=== PATIENT | female | born 1950 | race Caucasian/White ===

== ENCOUNTER 2018-04-05 10:18 | Inpatient (IN) | payer MEDICARE, OTHER ==
[~2018-04-05] VITALS: Ht 160 cm; Wt 101.2 kg
--- NOTE | 2018-04-05 13:35 | NUR ---
PT ARRIVED TO [facility] VIA WC ACCOMPANIED BY SPOUSE AND HOSPITAL VOLUNTEER. PT SELF TRANSFERED INTO BED. PT IS ALERT AND ORIENTED AND ON ROOM AIR. MED RECA DN ADMISSION HISTORY COMPLETED. DULCE RN TO DO ADMISSION ASSESSMENT. WILL GET IV STARTED. PT HAS NO FURTHER NEEDS AT THIS TIME. BED LOW. CL IN REACH.
[2018-04-05] MEDS ORDERED: ZYLOPRIM300 MG PO (13:44)
[2018-04-05] MEDS ORDERED: BYSTOLIC5 MG PO (13:45)
[2018-04-05] MEDS ORDERED: CYMBALTA60 MG PO (13:45)
[2018-04-05] MEDS ORDERED: LYRICA75 MG PO (13:46)
[2018-04-05] MEDS ORDERED: GLUCOPHAGE1000 MG PO (13:47)
[2018-04-05] MEDS ORDERED: ZYPREXA20 MG PO (13:47)
[2018-04-05] MEDS ORDERED: OMEPRAZOLE20 M1 PO (13:48)
[2018-04-05] MEDS ORDERED: PREMARIN0.45 MG PO (13:49)
[2018-04-05] MEDS ORDERED: PRAVACHOL20 MG PO (13:49)
[2018-04-05] MEDS ORDERED: BYDUREON P2 MG/0.65 SC (13:50)
[2018-04-05 14:38] VITALS: BP 139/55; BMI 39.0
--- NOTE | 2018-04-05 14:41 | NUR ---
UNDRESSED LEFT FOOR DRESSING. CLEANSED OPEN ULCER ON FLAT SURFACE OF LEFT FOOT AND LET AIR DRY AND COLLECTED WOUND CULTURE TO DO PER MICROBIOLOGY. CLEANSED BLISTERS ON TOP OF GREAT TOE AND SIDE OF GREAT TOE WITH WOUND CLEANSER AND LET AIR DRY. PLACED 4X4'S ON BOTTOM OF FLAT SURFACE AND WRAPPED FOOT WITH KERLIX AND TAPED. WOUND CULTURE TAKEN TO LAB.
--- NOTE | 2018-04-05 14:52 | NUR ---
THIS NURSE AND ANOTHER NURSE TRIED TO START IV ON PT WITH NO SUCCESS. MAHAD VASCULAR ACCESS NURSE CALLED ANS SHE STATES TO HAVE ANDRE TRY FIRST AND IF ANDRE CAN'T GET IT TO CALL HER BACK. ANDRE RN TO TRY AND START IV.
--- NOTE | 2018-04-05 14:55 | NUR ---
PHARMACY DOES NOT CARRY PREMARIN 0.45MG OR BYDUREON 2MG PT HAS TO BRING MED FROM HOME AND TAKEN TO PHARMACY SO THEY CAN LABEL IT. WILL ASK PT TO BRING MEDS FROM HOME.
--- NOTE | 2018-04-05 15:02 | NUR ---
SPOKE WITH PT AND PT'S . PT STATES HE WILL GET THE MEDS AND BRING FROM HOME. ANDRE DAIGLE STARTED RIGHT AC 20G IV.
--- NOTE | 2018-04-05 15:39 | NUR ---
PT GOT UP TO USE THE BATHROOM AND BLISTER RIGHT UNDER GREAT TOE ON LEFT FOOT POPPED AND STARTED BLEEDING AND FOOT DRESSING CAME OFF. CLENASED FOOT WITH WOUND CLEANSER AND PLACED 4X4'S ON TOP OF FOOT AND ON FLAT SURFACE OF FOOT AND WRAPPED WITH KERLIX AND TAPPED. STATED TO PT WE NEED TO USE THE BEDPAN FROM NOW ON SO WE DON'T DO MORE DAMAGE TO HER FOOT. PT VERBALIZED UNDERSTANDING. UA COLLECTED AND TAKEN TO LAB.
[2018-04-05 16:26] LABS: BASOPHILS 0.1 % (0-2); EOSINOPHILS 0 % (0-7); HEMATOCRIT 30.6 % (36.0-48.0); HEMOGLOBIN 10.8 g/dL (12-16); IMMATURE GRANULOCYTES 0.4 % (0-5); LYMPHOCYTES 4.9 % (15-50); MCH 32.7 pg (26.0-34.0); MCHC 35.3 g/dL (31.0-37.0); MCV 92.7 fL (80.0-100.0); MEAN PLATELET VOLUME 10.3 fL (7.4-10.4); MONOCYTES 5.5 % (2-11); NEUTROPHILS 89.1 % (40-80); WBC 19.4 10x3/uL (4.8-10.8)
[2018-04-05 16:30] LABS: PLATELET COUNT 191 10x3/uL (130-400)
[2018-04-05 16:42] LABS: ALBUMIN 2.9 g/dL (3.4-5.0); ANION GAP 14.3 mmol/L (8-16); BILIRUBIN - TOTAL 0.42 mg/dL (0.2-1.3); CALCIUM 9.7 mg/dL (8.5-10.1); CARBON DIOXIDE 27.3 mmol/L (21.0-32.0); CREATININE - SERUM 1.5 mg/dL (0.6-1.3); POTASSIUM - SERUM 4.6 mmol/L (3.5-5.1); PROTEIN - SERUM 6.8 g/dL (6.4-8.2); URIC ACID 6.2 mg/dL (2.6-7.2)
[2018-04-05 16:48] LABS: APPEARANCE CLEAR (CLEAR); BILIRUBIN NEGATIVE (NEGATIVE); COLOR YELLOW (YELLOW); GLUCOSE NEGATIVE (NEGATIVE); KETONE NEGATIVE (NEGATIVE); NITRITE NEGATIVE (NEGATIVE); PROTEIN NEGATIVE (NEGATIVE); UROBILINOGEN NORMAL (NORMAL)
[2018-04-05 17:22] VITALS: BP 130/47
[2018-04-05 17:53] LABS: ERYTHROCYTE SEDIMENTATION RATE 110 mm/hr (0-30)
--- NOTE | 2018-04-05 18:33 | NUR ---
PT'S FOOT WORSE FROM EARLIER TODAY. LEFT FOOT NOW HAVING DARK DISCOLORATION BELOW POPPED BLISTER BELOW GREATER TOE. CLEANSED FOOT WITH WOUND SPRAY AND COVERED WIHT ABD PAD AND WRAPPED WIHT KERLIX AND TAPPED PER DR. DAMIAN Hewitt.
--- NOTE | 2018-04-05 19:00 | NUR ---
COLON AND RECTAL SURGEON CALLED AND STATES SHE WILL BE HERE IN ABOUT AN HOUR TO DO MRI.
--- NOTE | 2018-04-05 19:15 | NUR ---
CONSENTS SIGNED AND IN CHART.
--- NOTE | 2018-04-05 20:00 | NUR ---
PT GO TO MRI WITH HOSPITAL STAFF.
--- NOTE | 2018-04-05 21:09 | NUR ---
PT BACK FROM MRI.
[2018-04-06 00:02] VITALS: BP 100/42
--- NOTE | 2018-04-06 01:07 | NUR ---
REST QUIELTY IN BED, CALL LIGHT IN REACH.
--- NOTE | 2018-04-06 04:09 | NUR ---
REST QUIELTY IN BED, CALL LIGHT IN REACH.
[2018-04-06 04:42] VITALS: BP 86/41
[2018-04-06 06:20] LABS: BASOPHILS 0.1 % (0-2); EOSINOPHILS 0.2 % (0-7); HEMATOCRIT 29.2 % (36.0-48.0); HEMOGLOBIN 10.1 g/dL (12-16); IMMATURE GRANULOCYTES 0.4 % (0-5); LYMPHOCYTES 7.2 % (15-50); MCH 32.6 pg (26.0-34.0); MCHC 34.6 g/dL (31.0-37.0); MCV 94.2 fL (80.0-100.0); MEAN PLATELET VOLUME 10.4 fL (7.4-10.4); MONOCYTES 6.6 % (2-11); NEUTROPHILS 85.5 % (40-80); PLATELET COUNT 177 10x3/uL (130-400); RDW 13.1 % (11.5-14.5)
[2018-04-06 06:41] LABS: ANION GAP 15.1 mmol/L (8-16); POTASSIUM - SERUM 4.1 mmol/L (3.5-5.1)
[2018-04-06 06:50] LABS: WBC 14.4 10x3/uL (4.8-10.8)
--- NOTE | 2018-04-06 07:00 | NUR ---
RECEIVED REPORT. ASSUMED CARE OF PATIENT. CALL LIGHT WITHIN REACH. AWAKE, SITTING UP IN BED WITH FAMILY AT BEDSIDE. NO DISTRESS. NPO FOR SURGERY THIS AM.
--- NOTE | 2018-04-06 08:00 | NUR ---
EKG COMPLETED AND PLACED ON CHART.
[2018-04-06 08:15] VITALS: BP 109/44
--- NOTE | 2018-04-06 09:42 | NUR ---
CALL PLACED TO SURGERY, SURGERY STATE PATIENT IS CASE NUMBER [id number], WILL BE DONE CLOSER TO THE END OF THE DAY.
--- NOTE | 2018-04-06 11:38 | NUR ---
FSBS 131. NO INSULIN REQUIRED. PATIENT IS ALSO NPO FOR SURGICAL PROCEDURE.
[2018-04-06 11:46] VITALS: BP 125/63
--- NOTE | 2018-04-06 11:55 | NUR ---
CALLED TO CHECK ON PATIENT AND CONFIRM THAT PATIENT HAS DECIDED TO AMPUTATE HER LEG. DR. MANRIQUEZ STATED SHE WOULD PROBABLY COME OVER AND SEE THE PATIENT.
--- NOTE | 2018-04-06 12:29 | NUR ---
PREOP MEDS ADMINISTERED ORDERED AT THIS TIME.
--- NOTE | 2018-04-06 13:22 | NUR ---
PATIENT LEFT UNIT AT THIS TIME FOR SURGERY VIA BED. NO DISTRESS UPON LEAVING UNIT.
[2018-04-06 15:48] LABS: % SATURATION 9 % (15-55); IRON 18 ug/dl (35-150); TOTAL IRON BIND CAPACITY 196 ug/dl (260-445); UNSAT IRON BIND CAPACITY 178 ug/dl (150-375)
--- NOTE | 2018-04-06 16:25 | NUR ---
PATIENT REMAINS OFF UNIT AT THIS TIME.
--- NOTE | 2018-04-06 16:40 | NUR ---
RECEIVED REPORT FROM RECOVERY. PATIENT TO UNIT SOON.
[2018-04-06 16:53] VITALS: BP 109/53
--- NOTE | 2018-04-06 16:55 | NUR ---
RECEIVED PATIENT FROM RECOVERY. AWAKE, ALERT, ORIENTED. FRESH ICE WATER PROVIDED REQUESTED. VS STABLE AND DOCUMENTED IN VS POST OP STATBILITY. IV INFUSING ORDERED. CALL LIGHT WITHIN REACH. CAILIN DRAIN TO LEFT LEG WITH NO OUTPUT. KNEE IMMOBILIZER TO LEFT LEG. NO DISTRESS. PATIENT STATES SHE IS READY FOR DINNER!
--- NOTE | 2018-04-06 18:30 | NUR ---
RESTING IN BED. PM MEAL CONSUMED. NO DISTRESS. IV VANC INFUSING ORDERED. CALL LIGHT WITHIN REACH. NO DRAINAGE TO CAILIN DRAIN AT THIS TIME. CAILIN DRAIN SAFETY PINNED TO KNEE BRACE.
--- NOTE | 2018-04-06 19:25 | NUR ---
INITIAL ASSESSMENT COMPLETED - PT A/O X4, VSS. L LEG BANDAGE AND CAILIN DRAIN INTACT, DRAINING BLOODY FLUID. PAIN 04/18, EDUCATED PT THAT WHEN SHE STARTS FEELING BREAKTHROUGH PAIN TO NOTIFY RN IN ORDER TO KEEP PAIN UNDER CONTROL. PT VERBALIZED UNDERSTANDING. NO FURTHER NEEDS NOTED AT THIS TIME. WCTM AND FOLLOW POC. CL IN REACH, BED IN LOWEST POSITION, SR UPX2.
[2018-04-06 21:03] VITALS: BP 111/41
--- NOTE | 2018-04-06 21:31 | OP ---
PATIENT NAME: JAVIER ORNELAS MEDICAL RECORD: [id number] :52 LOCATION:D. D.2139 ADMISSION DATE:04/05/18 SURGEON: MERRICK SALGADO DO DATE OF OPERATION: 04/06/2018 PROCEDURE PERFORMED: Left below-knee amputation. PREOPERATIVE DIAGNOSIS: Diabetic left foot infection. POSTOPERATIVE DIAGNOSIS: Diabetic left foot infection. INDICATIONS: Ms. Ornelas is a 67-year-old female who presented to the hospital yesterday after having had a diabetic foot ulcer for sometime. The ulcer was on the plantar surface of the foot over the metatarsal heads. She had it and then suddenly her foot started becoming red on Thursday. On Thursday, more red and swollen and then, by Thursday morning, it spread to her mid foot and her foot was quite swollen with purulent fluid draining out of it. The redness reached her ankle and overnight, Thursday night, she did get an MRI, which demonstrated a large abscess in the foot and myositis in the entire foot. I had a desiree discussion with her that we can do an I&D, but I may not be able to stop or heal the foot due to her diabetes that I offered her a solution of a below-knee amputation, but it would be her choice whether to do an I&D or below-knee amputation. She chose to do the below knee amputation, knowing the risk of further infection, further need for surgery, damage to nerves and vessels, phantom pain, and slow healing wound. She was okay with those risks and signed the consent. SURGEON: Merrick Salgado DO DESCRIPTION OF THE PROCEDURE: The patient was taken to the operative suite, laid in supine position. The left lower extremity was prepped and draped in a sterile fashion. Timeout was performed. Everyone was in agreement with the correct side, site, patient and procedure. The patient was on antibiotics on the floor. Vancomycin and Zosyn were given prior to the incision. The leg was elevated and a tourniquet was inflated to 350 mmHg and it was up for exactly 40 minutes during the procedure The incision then began approximately 12 cm from the joint line and was extended distal and posterior for the flap of the amputation to approximately 17 cm from the joint line. Careful dissection was made down to the fascia. Any vessels encountered were tied and coagulated. The posterior tibial nerve, traction was placed on it and it was transected with Bovie. Each compartment was dissected out and muscle bellies were cut compartment by compartment and vessels were found and tied off. Once this was done, the tibia and was cut and then the fibula approximately 1 cm above the tibia cut was cut saving the posterior compartment for a flap for the tibia to cover the tibia and the stump and drill holes were then made into the tibia and a myodesis was done with the gastroc fascia tied to the tibia forming a nice coverage of the tibia cut. This was tagged with #2 Ethibond. At that point, the tourniquet was let down to search for any bleeders and there were no bleeders at that time. A drain was then placed. A 10-Khmer and lowest level below the fascial level and brought out through the lateral side through a small incision. The fascia was then closed with #2 Ethibond, tying most of it to the tibia and then a 0 Vicryl as well tied to itself. Then, the skin was closed with 2-0 Vicryl in inverted interrupted fashion and then 2-0 Prolene in a horizontal mattress fashion on the skin. The wound was then dressed with Adaptic, 4 x 4s, ABD, Kerlix and 6-inch Reji wrap and she was placed in a knee OPERATIVE REPORT [id number] JAVIER ORNELAS immobilizer. TRANSINT:[id number] Voice Confirmation ID: [id number] DOCUMENT ID: [id number] MERRICK SALGADO DO at 2131 CC: [id number] DICTATION DATE: 04/06/18 164 FLUXER: 04/06/182033 ADM IN [facility] [address] [place] [address]
--- NOTE | 2018-04-07 00:16 | NUR ---
TO PT ROOM VIA NANOTECHNICIAN. NANOTECHNICIAN STATES PT BP IS 92/38. BP RETAKEN BY RN, BP 94/40. PT A/O X4, DENIES ANY PAIN OR DISCOMFORT. CHANGED NS RATE TO 90 ML/HR INSTEAD OF 30 ML/HR. WCTM. CL IN REACH, SR UP X2, BED IN LOWEST POSITION.
[2018-04-07 00:31] VITALS: BP 92/38
--- NOTE | 2018-04-07 02:34 | NUR ---
RESUMING PT CARE - BP 107/68, HR 71. PT RESTING IN BED COMFORTABLY, RR EVEN AND UL, NO S/S OF DISTRESS. FSBS 120. NO COVERAGE NEEDED. WILL CONTINUE TO ASSESS NEEDS AND FOLLOW POC. CL IN REACH, SR UPX2, BED IN LOWEST POSITION, DENIES FURTHER NEEDS AT THIS TIME.
--- NOTE | 2018-04-07 04:35 | NUR ---
RESUMING PT CARE - PT RESTING IN BED WITH EYES CLOSED. RR EVEN AND UL, NO S/S OF DISTRESS. VSS, IV INFUSING. NO NEEDS NOTED AT THIS TIME. WILL CONTINUE TO ASSESS NEEDS. CL IN REACH, SR UP X2, BED IN LOWEST POSITION.
[2018-04-07 06:11] LABS: BASOPHILS 0.1 % (0-2); EOSINOPHILS 0.3 % (0-7); HEMATOCRIT 28.7 % (36.0-48.0); HEMOGLOBIN 9.8 g/dL (12-16); IMMATURE GRANULOCYTES 0.4 % (0-5); LYMPHOCYTES 19.6 % (15-50); MCHC 34.1 g/dL (31.0-37.0); MCV 93.8 fL (80.0-100.0); MEAN PLATELET VOLUME 9.9 fL (7.4-10.4); MONOCYTES 5.6 % (2-11); PLATELET COUNT 184 10x3/uL (130-400); RBC 3.06 10x6/uL (4.00-5.40)
[2018-04-07 06:17] VITALS: BP 126/73
[2018-04-07 06:19] LABS: ANION GAP 14.5 mmol/L (8-16); CARBON DIOXIDE 23.8 mmol/L (21.0-32.0); POTASSIUM - SERUM 4.3 mmol/L (3.5-5.1)
[2018-04-07 06:20] LABS: CREATININE - SERUM 1.3 mg/dL (0.6-1.3)
[2018-04-07 06:30] LABS: WBC 7.9 10x3/uL (4.8-10.8)
--- NOTE | 2018-04-07 07:57 | NUR ---
RESUMING PT CARE, PT LAYING IN BED WITH EYES CLOSED, RESPIRATIONS EVEN AND UNLABORED. CALL LIGHT IN REACH, WILL CONTINUE TO MONITOR AND FOLLOW PLAN OF CARE.
[2018-04-07 08:35] VITALS: BP 138/71
[2018-04-07 09:19] LABS: FOLATE (FOLIC ACID) - SERUM >20.0 ng/mL (>3.0)
--- NOTE | 2018-04-07 11:09 | NUR ---
RESTING QUIETLY. NO COMPLAINTS NOR DISTRESS. WILL CONTINUE WITH POC.
[2018-04-07 11:36] VITALS: BP 132/65
--- NOTE | 2018-04-07 12:02 | NUR ---
Rehab Prescreening Consult recieved and the chart has been reviewed. She is an excellent ARU. She is POD#1 Left BKA. Rehab will follow and accept her when she is medically stable and is willing to participate in the required therapy. Discussed with the CM Cole Kerr. Irma Rodney RN Clinical Liaison, Rehab
[2018-04-07 15:51] VITALS: BP 124/54
--- NOTE | 2018-04-07 17:32 | MORECARE ---
CASE MANAGEMENT DISCHARGE SUMMARY PATIENT: JAVIER NAIR UNIT: [id number] ADM DATE: 04/05/18 AGE: 67 : 51 SEX: F ROOM/BED: D.2139 AUTHOR: SANDIP SLATER PHYSICIAN: REFERRING PHYSICIAN: JOMAR MANRIQUEZ MD DATE OF SERVICE: 04/07/18 Discharge Plan Patient Name: JAVIER NAIR Facility: [facility]:[place] : 1950 Planned Disposition: Inpatient Rehab Anticipated Discharge Date: 04/09/18 Discharge Date: Expected LOS: 4 Initial Reviewer: [email or web address] Initial Review Date: 04/07/2018 Generated: 04/07/18 6:32 pm External Providers External Provider: [email or web address] Next Contact Date: 04/08/2018 Service Request Date: Service Type: Resolution: Reviewer: Comments: Patient Name: JAVIER NAIR Page [phone] at 1732 All edits/amendments must be made on the electronic document DICTATION DATE: 04/07/181730 TOLL TRANSMISSION WORKER: ROMAN 04/07/181730 RPT#: [id number] DC DATE: STATUS: ADM IN [facility] [address] [place] [address] END OF REPORT
--- NOTE | 2018-04-07 17:50 | MORECARE ---
CASE MANAGEMENT DISCHARGE SUMMARY PATIENT: JAVIER NAIR UNIT: [id number] ADM DATE: 04/05/18 AGE: 67 : 51 SEX: F ROOM/BED: D.5883 AUTHOR: SANDIP SLATER PHYSICIAN: REFERRING PHYSICIAN: JOMAR MANRIQUEZ MD DATE OF SERVICE: 04/07/18 Discharge Plan Patient Name: JAVIER NAIR Facility: [facility]:[place] : 1950 Planned Disposition: Inpatient Rehab Anticipated Discharge Date: 04/09/18 Discharge Date: Expected LOS: 4 Initial Reviewer: [email or web address] Initial Review Date: 04/07/2018 Generated: 04/07/18 6:50 pm Comments DCP- Discharge Planning Updated by [email or web address]: Lencho Kerr on 04/07/18 4:[address] Patient Name: JAVIER NAIR Admission Status: Urgent Accout number: [id number] Admission Date: 04-05-2018 : 1950 Admission Diagnosis: Attending: JOMAR CASTAÑEDA Current LOS: 2 Anticipated DC Date: 04-09-2018 Planned Disposition: Inpatient Rehab Primary Insurance: MEDICARE A & B PLANNED EXTERNAL PROVIDER: [facility] Discharge Planning Comments: CM RECEIVED ORDER FOR INPATIENT REHAB PRESCREENING. CM MET WITH PT AND SPOUSE IN ROOM TO DISCUSS DISCHARGE PLANNING AND NEEDS. JAVIER NAIR provided verbal consent to discuss current and ongoing needs with/in the presence of: SPOUSE, ERASMO. PT REPORTS LIVING AT HOME INDEPENDENTLY WITH HER SPOUSE. PT HAS GLUCOMENTER, PREFERRED MEDICAL EQUIPMENT PROVIDER IS [facility] IN [place]. PT HAS NO OUTSIDE SERVICES ASSISTING IN THE HOME. CM DISCUSSED AVAILABILITY OF HOME HEALTH, REHAB SERVICES AND MEDICAL EQUIPMENT. CM DISCUSSED REHAB OPTIONS, LOCATIONS AND PROVIDERS. PT WOULD LIKE REHAB AT [facility]. PT REPORTS HER SPOUSE WILL PICK HER UP FOR DISCHARGE HOME. IMPORTANT MESSAGE FROM MEDICARE PROVIDED AND EXPLAINED. CM CALLED MIMI OF [facility], , PROVIDED REFERRAL INFORMATION, FAXED REFERRAL TO [facility] AT [phone]. MIMI TO SCREEN PT FOR INPATIENT REHAB ADMISSION. CM WAITING ADMISSION DETERMINATION FROM [facility]. Manager Product Support: Lencho Kerr DCPIA - Discharge Planning Initial Assessment Updated by [id number]: Lencho Kerr on 04/07/18 5:42 pm * Is the patient Alert and Oriented? Yes * How many steps to enter\exit or inside your home? * PCP DR. MANRIQUEZ * Pharmacy [facility] IN [place] * Preadmission Environment Home with Family * ADLs Independent * Equipment Glucometer * Other Equipment [facility]AT[facility] - MEDICAL EQUIPMENT PROVIDER * List name and contact numbers for known caregivers / representatives who currently or will assist patient after discharge: ERASMO NAIR, SPOUSE, * Verbal permission to speak to the caregivers and representatives has been obtained from the patient. Yes * Community resources currently utilized None * Please name any agencies selected above. NONE * Additional services required to return to the preadmission environment? No * Can the patient safely return to the preadmission environment? Yes * Has this patient been hospitalized within the prior 30 days at any hospital? No Coverage Notice Reviewer: [email or web address] - Lencho Kerr Notice Issued Date-Time: 04/07/2018 16:10 Notice Type: IM Discharge Notice Notice Delivered To: Patient Relationship to Patient: Clarity Developer Name: Delivery Method: HAND - Hand Delivered Debbie Days: Prior Verbal Notification: Recipient Understood Notice: Yes Recipient Signature: Yes Med Rec Note Co-signed by Attending: Coverage Notice Comment: Last DP export: 04/07/18 4:32 p Patient Name: JAVIER NAIR Page [phone] at 1750 All edits/amendments must be made on the electronic document DICTATION DATE: 04/07/181748 A AUXILIARY: ROMAN 04/07/181748 RPT#: [id number] DC DATE: STATUS: ADM IN [facility] [address] [place] [address] END OF REPORT
[2018-04-07 21:11] VITALS: BP 130/53
[2018-04-08 00:15] VITALS: BP 143/56
--- NOTE | 2018-04-08 01:45 | NUR ---
TO PT ROOM VIA FALL. FOUND PT SITTING ON THE FLOOR. PT A/O X4 AND APPEARS CALM. PT DENIES ANY PAIN OR DISCOMFORT EXCEPT FOR THE PAIN SHE HAD IN THE BKA. PT STATES SHE SUSTAINED NO INJURY FROM THE FALL, DENIES HITTING HER HEAD. STATED THAT SHE BUMPED HER ARM ON THE CHAIR. PT STATES SHE HAD JUST WOKEN UP AND HAD THE URGE TO GO TO THE BATHROOM AND IT "SLIPPED HER MIND" THAT SHE WAS MISSING A LEG, SO SHE WENT TO GET UP AND "LEANED OUT OF BED." PT INCONTINENT OF A BOWEL MOVEMENT AT THIS TIME WELL. DENIES TOILETING NEEDS AT THIS TIME. CLEANED PT AND DID A COMPLETE LINEN CHANGE. PT WAS WEARING YELLOW GOWN, NON SKID SOCKS, AND HAD FALL RISK SIGN ON HER DOOR, BUT WAS NOT EVALUATED A FALL RISK FOR PM SHIFT. THERE IS NOT A BED ALARM ON INCLUDING THE YELLOW GOWN, NON SKID SOCKS, AND FALL RISK SIGN ON DOOR. BED WAS IN LOWEST POSITION AT THE TIME OF THE FALL, SR WERE UP X2, AND CL WAS IN REACH. NOTIFIED KELLE OF FALL. WILL NOTIFY SPOUSE IN AM. EDUCATED PT TO USE THE CALL LIGHT WHEN NEEDING ANY KIND OF ASSISTANCE, PT VERBALIZED UNDERSTANDING. FALL PRECAUTIONS IN PLACE, NO FURTHER NEEDS NOTED AT THIS TIME. WCTM. CL IN REACH, SR UP X2, BED IN LOWEST POSITION, BED ALARM ON AND FUNCTIONING PROPERLY.
[2018-04-08 05:52] VITALS: BP 154/70
[2018-04-08 05:53] LABS: BASOPHILS 0.1 % (0-2); EOSINOPHILS 0.1 % (0-7); HEMATOCRIT 31.4 % (36.0-48.0); HEMOGLOBIN 11.2 g/dL (12-16); IMMATURE GRANULOCYTES 0.5 % (0-5); LYMPHOCYTES 4.1 % (15-50); MCH 33.2 pg (26.0-34.0); MCHC 35.7 g/dL (31.0-37.0); MCV 93.2 fL (80.0-100.0); MONOCYTES 4.9 % (2-11); NEUTROPHILS 90.3 % (40-80); RBC 3.37 10x6/uL (4.00-5.40)
[2018-04-08 06:08] LABS: ANION GAP 19.4 mmol/L (8-16); CALCIUM 7.8 mg/dL (8.5-10.1); CARBON DIOXIDE 19.1 mmol/L (21.0-32.0); CREATININE - SERUM 1.3 mg/dL (0.6-1.3); POTASSIUM - SERUM 4.5 mmol/L (3.5-5.1)
[2018-04-08 06:13] LABS: PLATELET COUNT 263 10x3/uL (130-400); WBC 11.9 10x3/uL (4.8-10.8)
--- NOTE | 2018-04-08 07:30 | NUR ---
ASSESSMENT DONE. DENIES NEEDS. ISO DCED
[2018-04-08 08:13] VITALS: BP 179/65
--- NOTE | 2018-04-08 09:15 | MORECARE ---
CASE MANAGEMENT DISCHARGE SUMMARY PATIENT: JAVIER NAIR UNIT: [id number] ADM DATE: 04/05/18 AGE: 67 : 51 SEX: F ROOM/BED: D.5526 AUTHOR: SANDIP SLATER PHYSICIAN: REFERRING PHYSICIAN: JOMAR MANRIQUEZ MD DATE OF SERVICE: 04/08/18 Discharge Plan Patient Name: JAVIER NAIR Facility: [facility]:[place] : 1950 Planned Disposition: Inpatient Rehab Anticipated Discharge Date: 04/09/18 Discharge Date: Expected LOS: 4 Initial Reviewer: [email or web address] Initial Review Date: 04/07/2018 Generated: 04/08/18 10:15 am Comments DCP- Discharge Planning Updated by [email or web address]: Quin Ramirez on 04/08/18 8:[address] MIMI WITH [facility] HERE, SHE HAS SCREENED THE PATIENT AND HAS SAID THAT SHE IS ACCEPTED. EXPLAINED THAT THE PLAN WAS TO DISCHARGE TOMORROW AND SHE STATED THAT WOULD BE FINE. DISCUSSED THAT THEY ARE RECOMMENDING THE PATIENT HAVE A WHEELCHAIR. SHE STATED THAT THEIR CASEMANAGERS WOULD TAKE CARE OF THAT IF NEEDED. THE PATIENT IS AWARE OF ACCEPTANCE, I WILL RELAY TO MANAN AND DR NINA OR GABE. DCP- Discharge Planning Updated by [id number]: Lencho Kerr on 04/07/18 4:[address] Patient Name: JAVIER NAIR Admission Status: Urgent Accout number: [id number] Admission Date: 04-05-2018 : 1950 Admission Diagnosis: Attending: JOMAR CASTAÑEDA Current LOS: 2 Anticipated DC Date: 04-09-2018 Planned Disposition: Inpatient Rehab Primary Insurance: MEDICARE A & B PLANNED EXTERNAL PROVIDER: [facility] Discharge Planning Comments: CM RECEIVED ORDER FOR INPATIENT REHAB PRESCREENING. CM MET WITH PT AND SPOUSE IN ROOM TO DISCUSS DISCHARGE PLANNING AND NEEDS. JAVIER NAIR provided verbal consent to discuss current and ongoing needs with/in the presence of: SPOUSE, ERASMO. PT REPORTS LIVING AT HOME INDEPENDENTLY WITH HER SPOUSE. PT HAS GLUCOMENTER, PREFERRED MEDICAL EQUIPMENT PROVIDER IS [facility] IN [place]. PT HAS NO OUTSIDE SERVICES ASSISTING IN THE HOME. CM DISCUSSED AVAILABILITY OF HOME HEALTH, REHAB SERVICES AND MEDICAL EQUIPMENT. CM DISCUSSED REHAB OPTIONS, LOCATIONS AND PROVIDERS. PT WOULD LIKE REHAB AT [facility]. PT REPORTS HER SPOUSE WILL PICK HER UP FOR DISCHARGE HOME. IMPORTANT MESSAGE FROM MEDICARE PROVIDED AND EXPLAINED. CM CALLED MIMI OF [facility], , PROVIDED REFERRAL INFORMATION, FAXED REFERRAL TO [facility] AT [phone]. MIMI TO SCREEN PT FOR INPATIENT REHAB ADMISSION. CM WAITING ADMISSION DETERMINATION FROM [facility]. Pastry Finisher: Lencho Kerr DCPIA - Discharge Planning Initial Assessment Updated by [id number]: Lencho Kerr on 04/07/18 5:42 pm * Is the patient Alert and Oriented? Yes * How many steps to enter\exit or inside your home? * PCP DR. MANRIQUEZ * Pharmacy [facility] IN [place] * Preadmission Environment Home with Family * ADLs Independent * Equipment Glucometer * Other Equipment [facility] RESPIRATORY - MEDICAL EQUIPMENT PROVIDER * List name and contact numbers for known caregivers / representatives who currently or will assist patient after discharge: ERASMO NAIR, SPOUSE, * Verbal permission to speak to the caregivers and representatives has been obtained from the patient. Yes * Community resources currently utilized None * Please name any agencies selected above. NONE * Additional services required to return to the preadmission environment? No * Can the patient safely return to the preadmission environment? Yes * Has this patient been hospitalized within the prior 30 days at any hospital? No Coverage Notice Reviewer: [id number] - Lencho Kerr Notice Issued Date-Time: 04/07/2018 16:10 Notice Type: IM Discharge Notice Notice Delivered To: Patient Relationship to Patient: Chief Estimator Name: Delivery Method: HAND - Hand Delivered Debbie Days: Prior Verbal Notification: Recipient Understood Notice: Yes Recipient Signature: Yes Med Rec Note Co-signed by Attending: Coverage Notice Comment: Last DP export: 04/07/18 4:50 p Patient Name: JAVIER NAIR Page 00955 at 0915 All edits/amendments must be made on the electronic document DICTATION DATE: 04/08/18913 PRIOR AUTHORIZATION TECHNICIAN: ROMAN 04/08/18913 RPT#: [id number] DC DATE: STATUS: ADM IN [facility] [address] [place] [address] END OF REPORT
--- NOTE | 2018-04-08 10:33 | MORECARE ---
CASE MANAGEMENT DISCHARGE SUMMARY PATIENT: JAVIER NAIR UNIT: [id number] ADM DATE: 04/05/18 AGE: 67 : 51 SEX: F ROOM/BED: D.9429 AUTHOR: SANDIP SLATER PHYSICIAN: REFERRING PHYSICIAN: JOMAR MANRIQUEZ MD DATE OF SERVICE: 04/08/18 Discharge Plan Patient Name: JAVIER NAIR Facility: [facility]:[place] : 1950 Planned Disposition: Inpatient Rehab Anticipated Discharge Date: 04/09/18 Discharge Date: Expected LOS: 4 Initial Reviewer: [id number] Initial Review Date: 04/07/2018 Generated: 04/08/18 11:33 am Comments DCP- Discharge Planning Updated by [id number]: Lencho Kerr on 04/08/18 9:[address] MIMI WITH [facility] HERE, SHE HAS SCREENED THE PATIENT AND HAS SAID THAT SHE IS ACCEPTED. EXPLAINED THAT THE PLAN WAS TO DISCHARGE TOMORROW AND SHE STATED THAT WOULD BE FINE. DISCUSSED THAT THEY ARE RECOMMENDING THE PATIENT HAVE A WHEELCHAIR. SHE STATED THAT THEIR CASEMANAGERS WOULD TAKE CARE OF THAT IF NEEDED. THE PATIENT IS AWARE OF ACCEPTANCE, I WILL RELAY TO MANAN AND DR NINA OR GABE. Appended by Lencho Kerr on 04/08/2018 10:29 HEEL STIFFENER: CM RECEIVED TELEPHONE MESSAGE FROM MIMI OF [facility] INPATIENT REH[facility], , PT WILL BE ACCEPTED FOR INPATIENT REHAB AT DISCHARGE. PT NOTIFIED AND IN AGREEMENT WITH DISCHARGE TO [facility] INPATIENT REH[facility]. NURSE REPORT TO BE CALLED TO [facility] AT [phone], FAX DISCHARGE INFORMATION TO [facility] WITH CURRENT MAR AT [phone]. [facility] TO ARRANGE VAN TRANSPORT. MIGUEL BRADLEY DCP- Discharge Planning Updated by [id number]: Lencho Kerr on 04/07/18 4:[address] Patient Name: JAVIER NAIR Admission Status: Urgent Accout number: [id number] Admission Date: 04-05-2018 : 1950 Admission Diagnosis: Attending: JOMAR CASTAÑEDA Current LOS: 2 Anticipated DC Date: 04-09-2018 Planned Disposition: Inpatient Rehab Primary Insurance: MEDICARE A & B PLANNED EXTERNAL PROVIDER: [facility] IN[facility] Discharge Planning Comments: CM RECEIVED ORDER FOR INPATIENT REHAB PRESCREENING. CM MET WITH PT AND SPOUSE IN ROOM TO DISCUSS DISCHARGE PLANNING AND NEEDS. JAVIER NAIR provided verbal consent to discuss current and ongoing needs with/in the presence of: SPOUSE, ERASMO. PT REPORTS LIVING AT HOME INDEPENDENTLY WITH HER SPOUSE. PT HAS GLUCOMENTER, PREFERRED MEDICAL EQUIPMENT PROVIDER IS [employer] [facility] IN [place]. PT HAS NO OUTSIDE SERVICES ASSISTING IN THE HOME. CM DISCUSSED AVAILABILITY OF HOME HEALTH, REHAB SERVICES AND MEDICAL EQUIPMENT. CM DISCUSSED REHAB OPTIONS, LOCATIONS AND PROVIDERS. PT WOULD LIKE REHAB AT [facility] IN[facility]IENT REH[facility]. PT REPORTS HER SPOUSE WILL PICK HER UP FOR DISCHARGE HOME. IMPORTANT MESSAGE FROM MEDICARE PROVIDED AND EXPLAINED. CM CALLED MIMI OF [facility] INPATIENT [facility], , PROVIDED REFERRAL INFORMATION, FAXED REFERRAL TO [facility] AT [phone]. MIMI TO SCREEN PT FOR INPATIENT REHAB ADMISSION. CM WAITING ADMISSION DETERMINATION FROM [facility]. Dev Manager: Lencho Kerr DCPIA - Discharge Planning Initial Assessment Updated by [id number]: Lencho Kerr on 04/07/18 5:42 pm * Is the patient Alert and Oriented? Yes * How many steps to enter\exit or inside your home? * PCP DR. MANRIQUEZ * Pharmacy [facility] IN [place] * Preadmission Environment Home with Family * ADLs Independent * Equipment Glucometer * Other Equipment [employer] [facility] - MEDICAL EQUIPMENT PROVIDER * List name and contact numbers for known caregivers / representatives who currently or will assist patient after discharge: ERASMO NAIR, SPOUSE, * Verbal permission to speak to the caregivers and representatives has been obtained from the patient. Yes * Community resources currently utilized None * Please name any agencies selected above. NONE * Additional services required to return to the preadmission environment? No * Can the patient safely return to the preadmission environment? Yes * Has this patient been hospitalized within the prior 30 days at any hospital? No Coverage Notice Reviewer: [id number] - Lencho Kerr Notice Issued Date-Time: 04/07/2018 16:10 Notice Type: IM Discharge Notice Notice Delivered To: Patient Relationship to Patient: Sales Enablement Analyst Name: Delivery Method: HAND - Hand Delivered Debbie Days: Prior Verbal Notification: Recipient Understood Notice: Yes Recipient Signature: Yes Med Rec Note Co-signed by Attending: Coverage Notice Comment: Last DP export: 04/08/18 8:15 a Patient Name: JAVIER NAIR Page 61073 at 1033 All edits/amendments must be made on the electronic document DICTATION DATE: 04/08/18 103 CUSTOM PROTECTION OFFICER: ROMAN 04/08/18 1032 RPT#: [id number] DC DATE: STATUS: ADM IN [facility] [address] [place] [address] END OF REPORT
[2018-04-08 11:33] VITALS: BP 146/57
[2018-04-08 14:45] VITALS: Ht 160 cm; Wt 101.2 kg
[2018-04-08 15:37] VITALS: BP 166/65
--- NOTE | 2018-04-08 18:10 | NUR ---
WITHOUT CHANGES OR DISTRESS NOTED AT THIS TIME. DENIES NEEDS.
--- NOTE | 2018-04-08 19:52 | NUR ---
RESUMING PT CARE. PT IS ALERT LAYING IN THE BED WACTHING TV. RESPIRATIONS EVEN AND UNLABORED. NO C/O VOICED AT THIS TIME. BED IN LOW POSITION WITH CALL LIGHT IN REACH. SIDE RAILS UP X 2. WILL CONTINUE TO MONITOR PT AND FOLLOW PLAN OF CARE.
[2018-04-08 20:00] VITALS: BP 140/57
[2018-04-09] VITALS: BP 139/58
[2018-04-09 04:00] VITALS: BP 143/51
[2018-04-09 07:22] LABS: BASOPHILS 0.2 % (0-2); EOSINOPHILS 0.1 % (0-7); HEMATOCRIT 27.5 % (36.0-48.0); HEMOGLOBIN 9.4 g/dL (12-16); LYMPHOCYTES 9.6 % (15-50); MCHC 34.2 g/dL (31.0-37.0); MCV 93.5 fL (80.0-100.0); MEAN PLATELET VOLUME 10.1 fL (7.4-10.4); MONOCYTES 6.4 % (2-11); NEUTROPHILS 82.7 % (40-80); PLATELET COUNT 223 10x3/uL (130-400); RBC 2.94 10x6/uL (4.00-5.40); RDW 13.2 % (11.5-14.5); WBC 9.6 10x3/uL (4.8-10.8)
[2018-04-09 07:38] LABS: ANION GAP 16.2 mmol/L (8-16); CALCIUM 7.4 mg/dL (8.5-10.1); CARBON DIOXIDE 22.7 mmol/L (21.0-32.0); POTASSIUM - SERUM 3.9 mmol/L (3.5-5.1)
[2018-04-09 07:41] LABS: CREATININE - SERUM 0.9 mg/dL (0.6-1.3)
--- NOTE | 2018-04-09 08:02 | NUR ---
REPORT RECEIVED. WILL CONTINUE WITH POC. PT CURRENTLY LYING SEMI FOWLERS. CALL LIGHT W/I REACH. RR EVEN AND UNLABORED ON RA. NS INFUSING @100ML/HR VIA L.FOR PIV. PT IS AAO AND UP WITH ASSIST. PT DENIES ANY NEEDS AT THIS TIME. WILL CTM.
[2018-04-09 09:02] VITALS: BP 150/64
[2018-04-09] MEDS ORDERED: VIBRAMYCIN 100100 MG PO (10:27)
[2018-04-09] MEDS ORDERED: PROTONIX40 MG PO (10:27)
[2018-04-09] MEDS ORDERED: LEVAQUIN750 MG PO (10:27)
[2018-04-09] MEDS ORDERED: LISINOPRIL10 MG PO (10:28)
--- NOTE | 2018-04-09 10:40 | NUR ---
AM MEDICATIONS ADMINISTERED. PREIVOUS PIV INFILTRATED. REMOVED IV WITH CATHETER TIP FULLY INTACT. STARTED NEW PIV IN RIGHT HAND 22GA X1 ATTEMPT. FLUSHED WITH 10CC NS TO CONFIRM PATENCY. PT TOLERATED WELL. BEGAN INFUSION OF ABX. WILL CTM.
--- NOTE | 2018-04-09 11:30 | MORECARE ---
CASE MANAGEMENT DISCHARGE SUMMARY PATIENT: JAVIER NAIR UNIT: [id number] ADM DATE: 04/05/18 AGE: 67 : 51 SEX: F ROOM/BED: D.4341 AUTHOR: SANDIP SLATER PHYSICIAN: REFERRING PHYSICIAN: JOMAR MANRIQUEZ MD DATE OF SERVICE: 04/09/18 Discharge Plan Patient Name: JAVIER NAIR Facility: [facility]:[place] : 1950 Planned Disposition: Inpatient Rehab Anticipated Discharge Date: 04/09/18 Discharge Date: Expected LOS: 4 Initial Reviewer: [id number] Initial Review Date: 04/07/2018 Generated: 04/09/18 12:30 pm Comments DCP- Discharge Planning Updated by [id number]: Lencho Kerr on 04/08/18 9:[address] MIMI WITH [facility] HERE, SHE HAS SCREENED THE PATIENT AND HAS SAID THAT SHE IS ACCEPTED. EXPLAINED THAT THE PLAN WAS TO DISCHARGE TOMORROW AND SHE STATED THAT WOULD BE FINE. DISCUSSED THAT THEY ARE RECOMMENDING THE PATIENT HAVE A WHEELCHAIR. SHE STATED THAT THEIR CASEMANAGERS WOULD TAKE CARE OF THAT IF NEEDED. THE PATIENT IS AWARE OF ACCEPTANCE, I WILL RELAY TO MANAN AND DR NINA OR GABE. Appended by Lencho Kerr on 04/08/2018 10:29 IT SECURITY ARCHITECT: CM RECEIVED TELEPHONE MESSAGE FROM MIMI OF [facility] INPAT[facility], , PT WILL BE ACCEPTED FOR INPATIENT REHAB AT DISCHARGE. PT NOTIFIED AND IN AGREEMENT WITH DISCHARGE TO [facility]. NURSE REPORT TO BE CALLED TO [facility] AT [phone], FAX DISCHARGE INFORMATION TO [facility] WITH CURRENT MAR AT [phone]. [facility] TO ARRANGE VAN TRANSPORT. MIGUEL BRADLEY DCP- Discharge Planning Updated by [id number]: Lencho Kerr on 04/07/18 4:[address] Patient Name: JAVIER NAIR Admission Status: Urgent Accout number: [id number] Admission Date: 04-05-2018 : 1950 Admission Diagnosis: Attending: JOMAR CASTAÑEDA Current LOS: 2 Anticipated DC Date: 04-09-2018 Planned Disposition: Inpatient Rehab Primary Insurance: MEDICARE A & B PLANNED EXTERNAL PROVIDER: [facility] IN[facility] Discharge Planning Comments: CM RECEIVED ORDER FOR INPATIENT REHAB PRESCREENING. CM MET WITH PT AND SPOUSE IN ROOM TO DISCUSS DISCHARGE PLANNING AND NEEDS. JAVIER NAIR provided verbal consent to discuss current and ongoing needs with/in the presence of: SPOUSE, ERASMO. PT REPORTS LIVING AT HOME INDEPENDENTLY WITH HER SPOUSE. PT HAS GLUCOMENTER, PREFERRED MEDICAL EQUIPMENT PROVIDER IS [employer] [facility] IN [place]. PT HAS NO OUTSIDE SERVICES ASSISTING IN THE HOME. CM DISCUSSED AVAILABILITY OF HOME HEALTH, REHAB SERVICES AND MEDICAL EQUIPMENT. CM DISCUSSED REHAB OPTIONS, LOCATIONS AND PROVIDERS. PT WOULD LIKE REHAB AT [facility] INPATIENT [facility]. PT REPORTS HER SPOUSE WILL PICK HER UP FOR DISCHARGE HOME. IMPORTANT MESSAGE FROM MEDICARE PROVIDED AND EXPLAINED. CM CALLED MIMI OF [facility] IN[facility], , PROVIDED REFERRAL INFORMATION, FAXED REFERRAL TO [facility] AT [phone]. MIMI TO SCREEN PT FOR INPATIENT REHAB ADMISSION. CM WAITING ADMISSION DETERMINATION FROM [facility]. Dynamotor Repairer: Lencho Kerr DCPIA - Discharge Planning Initial Assessment Updated by [id number]: Lencho Kerr on 04/07/18 5:42 pm * Is the patient Alert and Oriented? Yes * How many steps to enter\exit or inside your home? * PCP DR. MANRIQUEZ * Pharmacy [facility] IN [place] * Preadmission Environment Home with Family * ADLs Independent * Equipment Glucometer * Other Equipment [employer] [facility] - MEDICAL EQUIPMENT PROVIDER * List name and contact numbers for known caregivers / representatives who currently or will assist patient after discharge: ERASMO NAIR, SPOUSE, * Verbal permission to speak to the caregivers and representatives has been obtained from the patient. Yes * Community resources currently utilized None * Please name any agencies selected above. NONE * Additional services required to return to the preadmission environment? No * Can the patient safely return to the preadmission environment? Yes * Has this patient been hospitalized within the prior 30 days at any hospital? No Coverage Notice Reviewer: [id number] - Lencho Kerr Notice Issued Date-Time: 04/07/2018 16:10 Notice Type: IM Discharge Notice Notice Delivered To: Patient Relationship to Patient: Billing Specialist Name: Delivery Method: HAND - Hand Delivered Debbie Days: Prior Verbal Notification: Recipient Understood Notice: Yes Recipient Signature: Yes Med Rec Note Co-signed by Attending: Coverage Notice Comment: Last DP export: 04/08/18 9:33 a Patient Name: JAVIER NAIR Page 65621 at 1130 All edits/amendments must be made on the electronic document DICTATION DATE: 04/09/18 113 INSPECTOR FILTER TIP: ROMAN 04/09/18 1130 RPT#: [id number] DC DATE: STATUS: ADM IN [facility] [address] [place] [address] END OF REPORT
[2018-04-09] MEDS ORDERED: NEURONTIN 300300 MG PO (12:28)
[2018-04-09] MEDS ORDERED: OXYCODONE HCL10 MG PO (13:00)
[2018-04-09 13:48] VITALS: BP 148/57
--- NOTE | 2018-04-09 15:23 | NUR ---
PT DISCHARGED TO [facility] VIA [facility] TRANSPORTATION. PT SIGNED PROPER DISCHARGE INSTRUCTION AND REMOVED ALL VALUABLES FROM THE ROOM. SCRIPT GIVEN. PIV REMOVED WITH CATHETER TIP FULLY INTACT.
--- NOTE | 2018-04-09 18:04 | MORECARE ---
CASE MANAGEMENT DISCHARGE SUMMARY PATIENT: JAVIER NAIR UNIT: [id number] ADM DATE: 04/05/18 AGE: 67 : 51 SEX: F ROOM/BED: D.6289 AUTHOR: SANDIP SLATER PHYSICIAN: REFERRING PHYSICIAN: JOMAR MANRIQUEZ MD DATE OF SERVICE: 04/09/18 Discharge Plan Patient Name: JAVIER NAIR Facility: [facility]:[place] : 1950 Planned Disposition: Inpatient Rehab Anticipated Discharge Date: 04/09/18 Discharge Date: 04/09/2018 Expected LOS: 4 Initial Reviewer: [id number] Initial Review Date: 04/07/2018 Generated: 04/09/18 7:04 pm Comments DCP- Discharge Planning Updated by [id number]: Lencho Kerr on 04/08/18 9:[address] MIMI WITH [facility] HERE, SHE HAS SCREENED THE PATIENT AND HAS SAID THAT SHE IS ACCEPTED. EXPLAINED THAT THE PLAN WAS TO DISCHARGE TOMORROW AND SHE STATED THAT WOULD BE FINE. DISCUSSED THAT THEY ARE RECOMMENDING THE PATIENT HAVE A WHEELCHAIR. SHE STATED THAT THEIR CASEMANAGERS WOULD TAKE CARE OF THAT IF NEEDED. THE PATIENT IS AWARE OF ACCEPTANCE, I WILL RELAY TO MANAN AND DR NINA OR GABE. Appended by Lencho Kerr on 04/08/2018 10:29 HONEYCOMB DECAPPER: CM RECEIVED TELEPHONE MESSAGE FROM MIMI OF [facility] INPAT[facility], , PT WILL BE ACCEPTED FOR INPATIENT REHAB AT DISCHARGE. PT NOTIFIED AND IN AGREEMENT WITH DISCHARGE TO [facility]. NURSE REPORT TO BE CALLED TO [facility] AT [phone], FAX DISCHARGE INFORMATION TO [facility] WITH CURRENT MAR AT [phone]. [facility] TO ARRANGE VAN TRANSPORT. MIGUEL BRADLEY DCP- Discharge Planning Updated by [id number]: Lencho Kerr on 04/07/18 4:[address] Patient Name: JAVIER NAIR Admission Status: Urgent Accout number: [id number] Admission Date: 04-05-2018 : 1950 Admission Diagnosis: Attending: JOMAR CASTAÑEDA Current LOS: 2 Anticipated DC Date: 04-09-2018 Planned Disposition: Inpatient Rehab Primary Insurance: MEDICARE A & B PLANNED EXTERNAL PROVIDER: [facility] INPAT[facility] Discharge Planning Comments: CM RECEIVED ORDER FOR INPATIENT REHAB PRESCREENING. CM MET WITH PT AND SPOUSE IN ROOM TO DISCUSS DISCHARGE PLANNING AND NEEDS. JAVIER NAIR provided verbal consent to discuss current and ongoing needs with/in the presence of: SPOUSE, ERASMO. PT REPORTS LIVING AT HOME INDEPENDENTLY WITH HER SPOUSE. PT HAS GLUCOMENTER, PREFERRED MEDICAL EQUIPMENT PROVIDER IS [employer] [facility] IN [place]. PT HAS NO OUTSIDE SERVICES ASSISTING IN THE HOME. CM DISCUSSED AVAILABILITY OF HOME HEALTH, REHAB SERVICES AND MEDICAL EQUIPMENT. CM DISCUSSED REHAB OPTIONS, LOCATIONS AND PROVIDERS. PT WOULD LIKE REHAB AT [facility]. PT REPORTS HER SPOUSE WILL PICK HER UP FOR DISCHARGE HOME. IMPORTANT MESSAGE FROM MEDICARE PROVIDED AND EXPLAINED. CM CALLED MIMI OF [facility] IN[facility], , PROVIDED REFERRAL INFORMATION, FAXED REFERRAL TO [facility] AT [phone]. MIMI TO SCREEN PT FOR INPATIENT REHAB ADMISSION. CM WAITING ADMISSION DETERMINATION FROM [facility]. Layout Artist: Lencho Kerr DCPIA - Discharge Planning Initial Assessment Updated by [id number]: Lencho Kerr on 04/07/18 5:42 pm * Is the patient Alert and Oriented? Yes * How many steps to enter\exit or inside your home? * PCP DR. MANRIQUEZ * Pharmacy [facility] IN [place] * Preadmission Environment Home with Family * ADLs Independent * Equipment Glucometer * Other Equipment [employer] [facility] - MEDICAL EQUIPMENT PROVIDER * List name and contact numbers for known caregivers / representatives who currently or will assist patient after discharge: ERASMO NAIR, SPOUSE, * Verbal permission to speak to the caregivers and representatives has been obtained from the patient. Yes * Community resources currently utilized None * Please name any agencies selected above. NONE * Additional services required to return to the preadmission environment? No * Can the patient safely return to the preadmission environment? Yes * Has this patient been hospitalized within the prior 30 days at any hospital? No Coverage Notice Reviewer: [id number] - Lencho Kerr Notice Issued Date-Time: 04/07/2018 16:10 Notice Type: IM Discharge Notice Notice Delivered To: Patient Relationship to Patient: Slunk Skin Curer Name: Delivery Method: HAND - Hand Delivered Debbie Days: Prior Verbal Notification: Recipient Understood Notice: Yes Recipient Signature: Yes Med Rec Note Co-signed by Attending: Coverage Notice Comment: Last DP export: 04/09/18 10:30 am Patient Name: JAVIER NAIR Page 11993 at 1804 All edits/amendments must be made on the electronic document DICTATION DATE: 04/09/181803 ELECTROENCEPHALOGRAPH TECHNOLOGIST: ROMAN 04/09/181803 RPT#: [id number] DC DATE:04/09/18 STATUS: DIS IN [facility] [address] [place] [address] END OF REPORT
--- NOTE | 2018-04-09 18:12 | MORECARE ---
CASE MANAGEMENT DISCHARGE SUMMARY PATIENT: JAVIER NAIR UNIT: [id number] ADM DATE: 04/05/18 AGE: 67 : 51 SEX: F ROOM/BED: D.7866 AUTHOR: BRYON,DOC PHYSICIAN: REFERRING PHYSICIAN: JOMAR MANRIQUEZ MD DATE OF SERVICE: 04/09/18 Discharge Plan Patient Name: JAVIER NAIR Facility: [facility]:[place] : 1950 Planned Disposition: Inpatient Rehab Anticipated Discharge Date: 04/09/18 Discharge Date: 04/09/2018 Expected LOS: 4 Initial Reviewer: [id number] Initial Review Date: 04/07/2018 Generated: 04/09/18 7:12 pm Comments DCP- Discharge Planning Updated by [email or web address]: Lencho Nath on 04/09/18 5:[address] Patient Name: JAVIER NAIR Encounter No: [id number] : 1950 Primary Insurance: MEDICARE A & B Anticipated DC Date: 04-09-2018 Planned Disposition: Inpatient Rehab External Planned Provider: [facility] INPATIENT REH[facility] LATE ENTRY: DCP follow-up note: CM RECEIVED DISCHARGE ORDER. CM FAXED DISCHARGE INFORMATION TO [facility] WITH CURRENT MAR AT [phone]. CM RECEIVED CALL FROM KERRI WHO INFORMED CM THAT VAN WILL COMB WINDER PT AT 3:15 PM TODAY. CM NOTIFIED PT AND SPOUSE IN ROOM, BOTH IN AGREEMENT WITH DISCHARGE TO [facility] FOR REHAB TODAY. BEDSIDE NURSE AND HEMATOLOGY SUPERVISOR NURSE NOTIFIED. NURSE REPORT CALLED TO [facility] AT [phone], [facility] PROVIDED VAN TRANSPORT. LENCHO NATH, CASE MANAGEMENT DCP- Discharge Planning Updated by [id number]: Lencho Nath on 04/08/18 9:29 am MADI LE WITH [facility] HERE, SHE HAS SCREENED THE PATIENT AND HAS SAID THAT SHE IS ACCEPTED. EXPLAINED THAT THE PLAN WAS TO DISCHARGE TOMORROW AND SHE STATED THAT WOULD BE FINE. DISCUSSED THAT THEY ARE RECOMMENDING THE PATIENT HAVE A WHEELCHAIR. SHE STATED THAT THEIR CASEMANAGERS WOULD TAKE CARE OF THAT IF NEEDED. THE PATIENT IS AWARE OF ACCEPTANCE, I WILL RELAY TO MANAN AND DR NINA OR GABE. Appended by Lencho Nath on 04/08/2018 10:29 ICU STAFF NURSE: CM RECEIVED TELEPHONE MESSAGE FROM MIMI OF [facility] INPATIENT REH[facility], , PT WILL BE ACCEPTED FOR INPATIENT REHAB AT DISCHARGE. PT NOTIFIED AND IN AGREEMENT WITH DISCHARGE TO [facility] INPATIENT REHAB. NURSE REPORT TO BE CALLED TO [facility] AT [phone], FAX DISCHARGE INFORMATION TO [facility] WITH CURRENT MAR AT [phone]. [facility] TO ARRANGE VAN TRANSPORT. LENCHO NATH, CASE MANAGEMENT DCP- Discharge Planning Updated by [id number]: Lencho Nath on 04/07/18 4:[address] Patient Name: JAVIER NAIR Admission Status: Urgent Accout number: [id number] Admission Date: 04-05-2018 : 1950 Admission Diagnosis: Attending: JOMAR CASTAÑEDA Current LOS: 2 Anticipated DC Date: 04-09-2018 Planned Disposition: Inpatient Rehab Primary Insurance: MEDICARE A & B PLANNED EXTERNAL PROVIDER: [facility] INPATIENT REHAB Discharge Planning Comments: CM RECEIVED ORDER FOR INPATIENT REHAB PRESCREENING. CM MET WITH PT AND SPOUSE IN ROOM TO DISCUSS DISCHARGE PLANNING AND NEEDS. JAVIER NAIR provided verbal consent to discuss current and ongoing needs with/in the presence of: SPOUSE, ERASMO. PT REPORTS LIVING AT HOME INDEPENDENTLY WITH HER SPOUSE. PT HAS GLUCOMENTER, PREFERRED MEDICAL EQUIPMENT PROVIDER IS [employer] IN [place]. PT HAS NO OUTSIDE SERVICES ASSISTING IN THE HOME. CM DISCUSSED AVAILABILITY OF HOME HEALTH, REHAB SERVICES AND MEDICAL EQUIPMENT. CM DISCUSSED REHAB OPTIONS, LOCATIONS AND PROVIDERS. PT W[facility] LIKE [facility]AB [facility] PT REPORTS HER SPOUSE WILL PICK HER UP FOR DISCHARGE HOME. IMPORTANT MESSAGE FROM MEDICARE PROVIDED AND EXPLAINED. CM CALLED MIMI OF [facility] INPATIENT REH[facility], , PROVIDED REFERRAL INFORMATION, FAXED REFERRAL TO [facility] AT [phone]. MIMI TO SCREEN PT FOR INPATIENT REHAB ADMISSION. [facility] Studio Technician: Lencho Nath DCPIA - Discharge Planning Initial Assessment Updated by [id number]: Lencho Nath on 04/07/18 5:42 pm * Is the patient Alert and Oriented? Yes * How many steps to enter\exit or inside your home? * PCP DR. MANRIQUEZ * Pharmacy [facility] IN [place] * Preadmission Environment Home with Family * ADLs Independent * Equipment Glucometer * Other Equipment [facility] - MEDICAL EQUIPMENT PROVIDER * List name and contact numbers for known caregivers / representatives who currently or will assist patient after discharge: ERASMO NAIR, SPOUSE, * Verbal permission to speak to the caregivers and representatives has been obtained from the patient. Yes * Community resources currently utilized None * Please name any agencies selected above. NONE * Additional services required to return to the preadmission environment? No * Can the patient safely return to the preadmission environment? Yes * Has this patient been hospitalized within the prior 30 days at any hospital? No Coverage Notice Reviewer: [id number] Dionna Nath Notice Issued Date-Time: 04/07/2018 16:10 Notice Type: IM Discharge Notice Notice Delivered To: Patient Relationship to Patient: Mix Technician Name: Delivery Method: HAND - Hand Delivered Debbie Days: Prior Verbal Notification: Recipient Understood Notice: Yes Recipient Signature: Yes Med Rec Note Co-signed by Attending: Coverage Notice Comment: Last DP export: 04/09/18 5:04 pm Patient Name: JAVIER NAIR Page 14986 at 1812 All edits/amendments must be made on the electronic document DICTATION DATE: 04/09/181810 HEAD ORTHOPEDIC TEAM PHYSICIAN: ROMAN 04/09/181810 RPT#: [id number] DC DATE:04/09/18 STATUS: DIS IN [facility] [address] [place] [address] END OF REPORT
== END 2018-04-09 15:25 | DRG 617 ==
LOC: D.M2 10:18 → D.SDCHOLD 10:18 → D.M2 13:30
PROVIDERS: Internal Medicine Nephrology; Orthopaedic Surgery; ADMIT Family Medicine
PROC: 0Y6J0Z1 Detachment at Left Lower Leg, High, Open Approach (ICD-10-PCS; principal; 2018-04-06 11:30)
DX: E11.621 Type 2 diabetes mellitus with foot ulcer (principal); E87.1 Hypo-osmolality and hyponatremia; L97.529 Non-pressure chronic ulcer of other part of left foot with unspecified severity; N17.9 Acute kidney failure, unspecified; D50.9 Iron deficiency anemia, unspecified; I10 Essential (primary) hypertension; E78.5 Hyperlipidemia, unspecified; E11.42 Type 2 diabetes mellitus with diabetic polyneuropathy; M32.9 Systemic lupus erythematosus, unspecified; E66.9 Obesity, unspecified; Z68.39 Body mass index [BMI] 39.0-39.9, adult

== ENCOUNTER 2018-07-22 12:39 | Day surgery (SDC) | payer MEDICARE, OTHER ==
[~2018-07-22] VITALS: Ht 157.5 cm; Wt 98.2 kg
--- NOTE | ~2018-07-22 | OP ---
PATIENT NAME: JAVIER ORNELAS MEDICAL RECORD: [id number] :52 LOCATION:[facility] ADMISSION DATE: SURGEON: ELSY KRAUS MD DATE OF OPERATION: 07/22/2018 PROCEDURE: Colonoscopy with ileoscopy, biopsy, and polypectomy. REFERRING PHYSICIAN: Jomar Manriquez MD INDICATIONS: Ms. Ornelas is a delightful 68-year-old woman with history of intermittent diarrhea. 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 Her last colonoscopy was with Dr. Beny Kaba on 08/10/2014 with no abnormal findings, i.e., a normal colonoscopy. She presents for outpatient colonoscopy. PREMEDICATIONS: Total IV anesthesia (propofol 400 mg), ASA 3. INSTRUMENT: Olympus video colonoscope, pediatric. PROCEDURE AND FINDINGS: After receiving informed consent, Ms. Ornelas was placed in left lateral decubitus position and sedated as per anesthesia. After achieving adequate level of sedation, digital rectal exam was performed that showed a few external hemorrhoidal tags. No fissures or fistulas. Normal sphincter tone. No palpable rectal masses. Colonoscope was introduced per rectally and advanced to the cecum without difficulty. Cecum, IC valve, and appendiceal orifice were identified. As the colonoscope was withdrawn, careful inspection was made of the bob of the colon with normal mucosa, normal vascular and fold pattern. Within the cecum, was a 0.25-cm sessile polyp, removed with the biopsy forcep technique. The IC valve was intubated and the distal small bowel, i.e., terminal ileum. Mucosa appeared normal and was biopsied. The ascending colon mucosa was unremarkable in appearance and was biopsied to rule out microscopic colitis. In the descending colon, was a 0.3-cm sessile polyp, removed with biopsy forcep technique. In the sigmoid colon, was a 0.3-cm sessile polyp, removed with biopsy forcep technique. There were scattered diverticula in the sigmoid colon and patchy erythema noted in the sigmoid colon. The sigmoid colonic mucosa was biopsied. Retroflexion in the rectum showed no significant internal hemorrhoids. Liquid was collected from colon for study (xTAG). Withdrawal time was 11 minutes. Ms. Ornelas tolerated the procedure well. No immediate complications. ASSESSMENT: 1. Normal-appearing terminal ileum, status post biopsy. 2. Diminutive cecal polyp, status post polypectomy. 3. Normal-appearing ascending colonic mucosa, status post biopsy to rule out microscopic colitis. 4. Descending colon polyp, status post polypectomy. 5. Sigmoid polyp, status post polypectomy. 6. Nonspecific patchy erythema in the sigmoid colon, status post biopsy, may be secondary to anti-inflammatory drugs or to resolving diverticulitis. RECOMMENDATIONS: 1. Follow up histopathology. 2. Avoid aspirin, nonsteroidal anti-inflammatory drugs, and CROOKS-2 inhibitors for 14 days post-polypectomy. 3. High fiber diet. OPERATIVE REPORT [id number] WESTLEYTERRELLJAVIER 4. Flagyl 500 mg one p.o. t.i.d. for 7 days. 5. Probiotics. 6. Daily Metamucil. 7. Colonoscopy in 3 years pending nature of polyp and histopathology. TRANSINT:[id number] Voice Confirmation ID: [id number] DOCUMENT ID: [id number] ELSY KRAUS MD CC: JOMAR MANRIQUEZ MD [id number] DICTATION DATE: 07/22/18 1509 FLORAL ARTIST: 07/22/18 1743 [facility] 07/22/18 [id number] [place] [address]
[~2018-07-22 12:39] MED LIST: BYDUREON P2 MG/0.65 SC; BYSTOLIC5 MG PO; CYMBALTA60 MG PO; GLUCOPHAGE1000 MG PO; LEVAQUIN750 MG PO; LISINOPRIL10 MG PO; LYRICA75 MG PO; NEURONTIN 300300 MG PO; OMEPRAZOLE20 M1 PO; OXYCODONE HCL10 MG PO; PRAVACHOL20 MG PO; PREMARIN0.45 MG PO; PROTONIX40 MG PO; VIBRAMYCIN 100100 MG PO; ZYLOPRIM300 MG PO; ZYPREXA20 MG PO
[2018-07-22 13:14] LABS: HEMATOCRIT 36.2 % (36.0-48.0); MCH 32.7 pg (26.0-34.0); MCHC 35.9 g/dL (31.0-37.0); MEAN PLATELET VOLUME 9.8 fL (7.4-10.4); RBC 3.98 10x6/uL (4.00-5.40); RDW 14.4 % (11.5-14.5)
[2018-07-22 14:07] VITALS: BP 144/67; Ht 157.5 cm; Wt 98.2 kg
--- NOTE | 2018-07-22 15:49 | NUR ---
1538 IV DC'D. CATHETER INTACT. NO BLEEDING AT SITE. BANDAID APPLIED.
== END 2018-07-22 16:00 | disposition home or self-care (01) ==
LOC: D.OPS 12:39
PROVIDERS: Anesthesiology; ATTEND Internal Medicine Gastroenterology
DX: K63.5 Polyp of colon (principal); L53.8 Other specified erythematous conditions; K64.4 Residual hemorrhoidal skin tags; Z01.812 Encounter for preprocedural laboratory examination

== ENCOUNTER → 2018-09-01 08:13 | Outpatient (CLI) | payer MEDICARE, OTHER ==
[2018-07-22 14:07] VITALS: BMI 39.6
== END | disposition home or self-care (01) ==
LOC: D.CT 08:13
PROVIDERS: ATTEND Family Medicine
DX: R20.8 Other disturbances of skin sensation (principal)

== ENCOUNTER 2019-06-01 12:20 | Inpatient (IN) | payer MEDICARE, OTHER ==
[~2019-06-01] VITALS: Ht 157.5 cm; Wt 98.0 kg
[2019-06-01 13:45] LABS: ALBUMIN 3.4 g/dL (3.4-5.0); ANION GAP 14.5 mmol/L (8-16); BILIRUBIN - TOTAL 0.44 mg/dL (0.2-1.3); CALCIUM 9.3 mg/dL (8.5-10.1); CARBON DIOXIDE 26.4 mmol/L (21.0-32.0); POTASSIUM - SERUM 3.9 mmol/L (3.5-5.1); PROTEIN - SERUM 7.7 g/dL (6.4-8.2)
--- NOTE | 2019-06-01 13:55 | NUR ---
PT GONE TO IR FOR BONE SCAN.
[2019-06-01 13:56] LABS: C-REACTIVE PROTEIN 22.7 mg/dL (0.0-0.9)
--- NOTE | 2019-06-01 14:28 | NUR ---
HUNG IV FLUIDS AND IV ANTIBIOTIC. NO COMPLAINT OF PAIN OR DISCOMFORT. PT REQUESTED BEDSIDE COMMODE, WILL PROVIDE ONE. DENIES ANY OTHER NEEDS AT THIS TIME. THEY WILL BE BACK AT 5 TO COMPLETE THE BONE SCAN. WILL CONTINUE TO MONITOR.
[2019-06-01 14:35] LABS: ERYTHROCYTE SEDIMENTATION RATE 108 mm/hr (0-30)
[2019-06-01 14:38] LABS: HEMATOCRIT 36.3 % (36.0-48.0); HEMOGLOBIN 12.5 g/dL (12-16); LYMPHOCYTES 13.9 % (15-50); MCH 32.4 pg (26.0-34.0); MCHC 34.4 g/dL (31.0-37.0); MEAN PLATELET VOLUME 10.2 fL (7.4-10.4); NEUTROPHILS 79.7 % (40-80); PLATELET COUNT 230 10x3/uL (130-400); RBC 3.86 10x6/uL (4.00-5.40); RDW 12.1 % (11.5-14.5); WBC 8.3 10x3/uL (4.8-10.8)
--- NOTE | 2019-06-01 15:03 | NUR ---
DID PT HISTORY, SUICE RISK SCREENING, FIRST CONTACT SCREENING. PT IS RESTING COMFORTABLY IN BED. DENIES ANY NEEDS AT THIS TIME. WILL CONTINUE TO MONITOR .
[2019-06-01 15:46] VITALS: BP 153/67
--- NOTE | 2019-06-01 16:37 | NUR ---
GAVE 4 UNITS OF INSULIN FOR BLOOD SUGAR 198. TOLERATED WELL. DR. SALGADO IN ROOM DISCUSSING WITH PATIENT. DENIES ANY NEEDS. RESTING COMFORTABLY. DENIES ANY NEEDS. WILL CONTINUE TO MONITOR.
--- NOTE | 2019-06-01 17:30 | NUR ---
NURSE CAME TO GET PT TO FINISH BONE SCAN.
[2019-06-01 18:24] VITALS: BP 153/67; BMI 39.6
--- NOTE | 2019-06-01 19:16 | NUR ---
HUNG NEW BAG OF ANTIBIOTIC. PASSED REPORT TO CHECK SERVICES CLERK NURSE. PT IS RESTING COMFORTABLY IN BED, FAMILY IN ROOM. DENIES ANY NEEDS AT THIS TIME.
[2019-06-01 20:05] VITALS: BP 149/53
[2019-06-01 22:42] VITALS: BP 149/53
[2019-06-02 01:42] VITALS: BP 134/68
[2019-06-02 04:52] LABS: BASOPHILS 0.2 % (0-2); EOSINOPHILS 2.6 % (0-7); HEMATOCRIT 31.4 % (36.0-48.0); HEMOGLOBIN 10.5 g/dL (12-16); IMMATURE GRANULOCYTES 0.3 % (0-5); LYMPHOCYTES 20.2 % (15-50); MCH 31.7 pg (26.0-34.0); MCHC 33.4 g/dL (31.0-37.0); MCV 94.9 fL (80.0-100.0); MEAN PLATELET VOLUME 9.9 fL (7.4-10.4); MONOCYTES 9.3 % (2-11); NEUTROPHILS 67.4 % (40-80); PLATELET COUNT 210 10x3/uL (130-400); RBC 3.31 10x6/uL (4.00-5.40); RDW 12.4 % (11.5-14.5); WBC 6.6 10x3/uL (4.8-10.8)
[2019-06-02 05:11] LABS: BILIRUBIN - TOTAL 0.42 mg/dL (0.2-1.3); CALCIUM 8.4 mg/dL (8.5-10.1); CARBON DIOXIDE 23.5 mmol/L (21.0-32.0); CREATININE - SERUM 0.9 mg/dL (0.6-1.3); MAGNESIUM - SERUM 1.4 mg/dL (1.8-2.4); PHOSPHOROUS 3.9 mg/dL (2.5-4.9); POTASSIUM - SERUM 3.5 mmol/L (3.5-5.1); PROTEIN - SERUM 6.1 g/dL (6.4-8.2)
[2019-06-02 05:13] LABS: APTT 44.9 SECONDS (22.8-39.4); INR 1.17 (0.85-1.17); PROTIME 14.8 SECONDS (11.6-15.0)
[2019-06-02 05:18] LABS: ALBUMIN 2.5 g/dL (3.4-5.0)
[2019-06-02 06:18] VITALS: BP 154/67
--- NOTE | 2019-06-02 07:47 | NUR ---
PT UP TO BSC AND ASSISTED BACK TO BED. RESP EVEN AND UNLABORED. DENIES PAIN AT THIS TIME. PT AWAITING MRI. 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 PT VOICES UNDERSTANDING. IV TO RIGHT AC WITH NS @ 75ML/HR INFUSING VIA PUMP. SITE WITHOUT REDNESS OR EDEMA. DRESSING TO LEFT STUMP INTACT. DENIES FURTHER NEEDS AT THIS TIME. CL WITHIN REACH. ENCOURAGED TO CALL WITH NEEDS. CONTINUE POC
[2019-06-02 09:29] VITALS: Ht 157.5 cm; Wt 98.0 kg
--- NOTE | 2019-06-02 17:27 | MORECARE ---
CASE MANAGEMENT DISCHARGE SUMMARY PATIENT: JAVIER NAIR UNIT: [id number] ADM DATE: 06/01/19 AGE: 68 : 51 SEX: F ROOM/BED: D.[facility]9 AUTHOR: SANDIP SLATER PHYSICIAN: REFERRING PHYSICIAN: ROSALINDA ANTHONY MD DATE OF SERVICE: 06/02/19 Discharge Plan Patient Name: JAVIER NAIR Facility: [facility]:[place] : 1950 Planned Disposition: Home Anticipated Discharge Date: Discharge Date: Expected LOS: Initial Reviewer: [email or web address] Initial Review Date: 06/01/2019 Generated: 06/02/19 6:26 pm Patient Name: JAVIER NAIR Page [phone] at 1727 All edits/amendments must be made on the electronic document DICTATION DATE: 06/02/191725 PROJECT ENGINEERING DIRECTOR: ROMAN 06/02/191725 RPT#: [id number] DC DATE: STATUS: ADM IN [facility] [address] [place] [address] END OF REPORT
--- NOTE | 2019-06-02 17:34 | MORECARE ---
CASE MANAGEMENT DISCHARGE SUMMARY PATIENT: JAVIER NAIR UNIT: [id number] ADM DATE: 06/01/19 AGE: 68 : 51 SEX: F ROOM/BED: D.2239 AUTHOR: BRYON,DOC PHYSICIAN: REFERRING PHYSICIAN: ROSALINDA ANTHONY MD DATE OF SERVICE: 06/02/19 Discharge Plan Patient Name: JAVIER NAIR Facility: [facility]:[place] : 1950 Planned Disposition: Home Anticipated Discharge Date: Discharge Date: Expected LOS: Initial Reviewer: [email or web address] Initial Review Date: 06/01/2019 Generated: 06/02/19 6:33 pm Comments DCP- Discharge Planning Updated by [email or web address]: Trudi Kirkpatrick on 06/02/19 4:[address] Patient Name: JAVIER NAIR Admission Status: Urgent Accout number: [id number] Admission Date: 06-01-2019 : 1950 Admission Diagnosis: Attending: GABRIELLE, Current LOS: 1 Anticipated DC Date: Planned Disposition: Home Primary Insurance: MEDICARE A & B Discharge Planning Comments: CM met with patient to complete initial dc planning assessment. CM educated patient on the CM role and verbal consent given by patient to complete assessment. Patient lives at with her . At discharge patient plans to return home and feels this is a safe discharge. CM discussed availability of home health, rehab services, and medical equipment. Patient denied known discharge needs at this time. CM will continue to follow and will assist as needed with dc plans/needs. Signal System Testing Maintainer: Trudi Kirkpatrick DCPIA - Discharge Planning Initial Assessment Updated by [email or web address]: Trudi Kirkpatrick on 06/02/19 5:26 pm * Is the patient Alert and Oriented? Yes * How many steps to enter\exit or inside your home? 4 RAMP * PCP [facility] * Pharmacy [facility] * Preadmission Environment Home with Family * ADLs Independent * Other Equipment WALKER, W/C, CANE, SHOWER CHAIR * List name and contact numbers for known caregivers / representatives who currently or will assist patient after discharge: ERASMO NAIR - [facility] - [phone] * Verbal permission to speak to the caregivers and representatives has been obtained from the patient. Yes * Community resources currently utilized None * Additional services required to return to the preadmission environment? No * Can the patient safely return to the preadmission environment? Yes * Has this patient been hospitalized within the prior 30 days at any hospital? No Last DP export: 06/02/19 4:27 p Patient Name: JAVIER NAIR Page [phone] at 1734 All edits/amendments must be made on the electronic document DICTATION DATE: 06/02/191732 SKIP OPERATOR: ROMAN 06/02/191732 RPT#: [id number] DC DATE: STATUS: ADM IN [facility] [address] [place] [address] END OF REPORT
[2019-06-02 17:38] VITALS: BP 150/62
[2019-06-02 20:00] VITALS: BP 136/50
[2019-06-02] MEDS ORDERED: QUESTRAN LIG1 PACKET PO (22:01)
[2019-06-03 04:00] VITALS: BP 144/73
[2019-06-03 05:28] LABS: BASOPHILS 0.2 % (0-2); EOSINOPHILS 2.2 % (0-7); HEMATOCRIT 32.2 % (36.0-48.0); HEMOGLOBIN 10.5 g/dL (12-16); IMMATURE GRANULOCYTES 0.3 % (0-5); MCH 31.3 pg (26.0-34.0); MCHC 32.6 g/dL (31.0-37.0); MCV 96.1 fL (80.0-100.0); MEAN PLATELET VOLUME 9.9 fL (7.4-10.4); MONOCYTES 9.1 % (2-11); NEUTROPHILS 67.2 % (40-80); PLATELET COUNT 219 10x3/uL (130-400); RBC 3.35 10x6/uL (4.00-5.40); RDW 12.6 % (11.5-14.5); WBC 5.8 10x3/uL (4.8-10.8)
[2019-06-03 05:42] LABS: ANION GAP 14.8 mmol/L (8-16); CALCIUM 8.6 mg/dL (8.5-10.1); CARBON DIOXIDE 22.9 mmol/L (21.0-32.0); CREATININE - SERUM 1.1 mg/dL (0.6-1.3); MAGNESIUM - SERUM 1.5 mg/dL (1.8-2.4); PHOSPHOROUS 3.7 mg/dL (2.5-4.9); POTASSIUM - SERUM 3.7 mmol/L (3.5-5.1)
--- NOTE | 2019-06-03 06:30 | NUR ---
CHANGED DRESSING TO LEFT STUMP. COLLECTED WOUND CULTURE AND SENT TO LAB. MAG 1.5 LOW - GAVE 1ST DOSE MAG 400 MG PO PER ELECTROLYTE PROTOCOL. NO OTHER NEEDS. WILL CONTINUE TO MONITOR.
--- NOTE | 2019-06-03 07:40 | NUR ---
PT SITTING UP ON SIDE OF BED. RESP EVEN AND UNLABORED. DENIES PAIN AT THIS TIME. IV TO RIGHT AC WITH NS @ 75ML/HR INFUSING VIA PUMP. SITE WITHOUT REDNESS OR EDEMA. DRESSING C/D/I TO LEFT STUMP. PT DENIES FURTHER NEEDS AT THIS TIME. CL WITHIN REACH. ENCOURAGED TO CALL WITH NEEDS. CONTINUE POC
[2019-06-03 09:29] VITALS: BP 146/65
[2019-06-03 13:51] VITALS: BP 154/70
--- NOTE | 2019-06-03 20:41 | MORECARE ---
CASE MANAGEMENT DISCHARGE SUMMARY PATIENT: JAVIER NAIR UNIT: [id number] ADM DATE: 06/01/19 AGE: 68 : 51 SEX: F ROOM/BED: D.2239 AUTHOR: BRYON,DOC PHYSICIAN: REFERRING PHYSICIAN: ROSALINDA ANTHONY MD DATE OF SERVICE: 06/03/19 Discharge Plan Patient Name: JAVIER NAIR Facility: [facility]:[place] : 1950 Planned Disposition: Home Anticipated Discharge Date: Discharge Date: Expected LOS: Initial Reviewer: [email or web address] Initial Review Date: 06/01/2019 Generated: 06/03/19 9:41 pm Comments DCP- Discharge Planning Updated by [email or web address]: Trudi Kirkpatrick on 06/03/19 7:[address] CM spoke with patient regarding longterm antibiotic treatment and rehab. Patient requests to go home with IV antibiotics and home health v/s inpatient rehab. NIKOLE signed for [facility] and any infusion clinovo that will accept insurance. CM uncertain as to what antibiotics will be ordered at this time. CM will continue to follow and assist as needed with discharge planning / needs. DCP- Discharge Planning Updated by [email or web address]: Trudi Kirkpatrick on 06/02/19 4:[address] Patient Name: JAVIER NAIR Admission Status: Urgent Accout number: [id number] Admission Date: 06-01-2019 : 1950 Admission Diagnosis: Attending: GABRIELLE, Current LOS: 1 Anticipated DC Date: Planned Disposition: Home Primary Insurance: MEDICARE A & B Discharge Planning Comments: CM met with patient to complete initial dc planning assessment. CM educated patient on the CM role and verbal consent given by patient to complete assessment. Patient lives at with her . At discharge patient plans to return home and feels this is a safe discharge. CM discussed availability of home health, rehab services, and medical equipment. Patient denied known discharge needs at this time. CM will continue to follow and will assist as needed with dc plans/needs. Production Checker: Trudi Kirkpatrick DCPIA - Discharge Planning Initial Assessment Updated by [email or web address]: Trudi Kirkpatrick on 06/02/19 5:26 pm * Is the patient Alert and Oriented? Yes * How many steps to enter\exit or inside your home? 4 RAMP * PCP [facility]AN * Pharmacy [facility] * Preadmission Environment Home with Family * ADLs Independent * Other Equipment WALKER, W/C, CANE, SHOWER CHAIR * List name and contact numbers for known caregivers / representatives who currently or will assist patient after discharge: ERASMO NAIR - [facility] - [phone] * Verbal permission to speak to the caregivers and representatives has been obtained from the patient. Yes * Community resources currently utilized None * Additional services required to return to the preadmission environment? No * Can the patient safely return to the preadmission environment? Yes * Has this patient been hospitalized within the prior 30 days at any hospital? No Coverage Notice Reviewer: [id number] Dionna Kirkpatrick Notice Issued Date-Time: 06/03/2019 20:35 Notice Type: Patient Choice Letter Notice Delivered To: Patient Relationship to Patient: Self Stretch Machine Operator Name: Delivery Method: HAND - Hand Delivered Debbie Days: Prior Verbal Notification: Recipient Understood Notice: Yes Recipient Signature: Yes Med Rec Note Co-signed by Attending: Coverage Notice Comment: [facility] any infusion company Last DP export: 06/02/19 4:34 p Patient Name: JAVIER NAIR Page 67627 at 204 All edits/amendments must be made on the electronic document DICTATION DATE: 06/03/192040 PROCESSING OPERATOR: ROMAN 06/03/192040 RPT#: [id number] DC DATE: STATUS: ADM IN [facility] [address] [place] [address] END OF REPORT
[2019-06-04 05:31] LABS: BASOPHILS 0.2 % (0-2); EOSINOPHILS 2.1 % (0-7); HEMATOCRIT 31.6 % (36.0-48.0); HEMOGLOBIN 10.5 g/dL (12-16); IMMATURE GRANULOCYTES 0.5 % (0-5); LYMPHOCYTES 20.4 % (15-50); MCH 32.3 pg (26.0-34.0); MCHC 33.2 g/dL (31.0-37.0); MCV 97.2 fL (80.0-100.0); MEAN PLATELET VOLUME 9.9 fL (7.4-10.4); MONOCYTES 7.5 % (2-11); NEUTROPHILS 69.3 % (40-80); PLATELET COUNT 225 10x3/uL (130-400); RBC 3.25 10x6/uL (4.00-5.40); RDW 12.4 % (11.5-14.5); WBC 6.5 10x3/uL (4.8-10.8)
[2019-06-04 05:53] LABS: ANION GAP 12.4 mmol/L (8-16); CALCIUM 9.3 mg/dL (8.5-10.1); CARBON DIOXIDE 25.4 mmol/L (21.0-32.0); MAGNESIUM - SERUM 1.6 mg/dL (1.8-2.4); PHOSPHOROUS 4.2 mg/dL (2.5-4.9); POTASSIUM - SERUM 3.8 mmol/L (3.5-5.1)
--- NOTE | 2019-06-04 08:45 | NUR ---
PATIENT REQUESTED AND RECEIVED BEDSIDE COMMODE BE EMPTIED. BED SIDE COMMODE PUT TOGETHER BACKWARDS. CHANGED SEAT AND LID AROUND TO FIX ANY LEAKING FROM BACK OF SEAT. CL IN REACH. NO FURTHER NEEDS AT THIS TIME. TM
--- NOTE | 2019-06-04 10:00 | NUR ---
FRESH WATER AND LINENS PROVIDED. CL IN REACH. TM
--- NOTE | 2019-06-04 10:20 | NUR ---
PATIENT PLACED IN CONTACT ISOLATION AT THIS TIME. CL IN REACH. WCTM
--- NOTE | 2019-06-04 11:32 | NUR ---
ARU NOTE - The patient refused admission to the ARU, stating that she would like to go home and receive services from Home Health.
[2019-06-04 12:54] VITALS: BP 144/58
[2019-06-04 16:47] VITALS: BP 156/69
--- NOTE | 2019-06-04 17:07 | NUR ---
DRESSING TO LEFT STUMP CHANGED. THE OTHER WAS SATURATED WITH PURULENT DRAINAGE. CL IN REACH. IV LINES CHANGED. FRESH WATER PROVIDED. WCTM
[2019-06-04 20:00] VITALS: BP 154/71
[2019-06-05 04:00] VITALS: BP 152/65
[2019-06-05 05:57] LABS: BASOPHILS 0.1 % (0-2); EOSINOPHILS 6.2 % (0-7); HEMATOCRIT 31.7 % (36.0-48.0); HEMOGLOBIN 10.3 g/dL (12-16); IMMATURE GRANULOCYTES 2.4 % (0-5); LYMPHOCYTES 11.6 % (15-50); MCH 31.6 pg (26.0-34.0); MCHC 32.5 g/dL (31.0-37.0); MCV 97.2 fL (80.0-100.0); MEAN PLATELET VOLUME 9.6 fL (7.4-10.4); MONOCYTES 5.9 % (2-11); NEUTROPHILS 73.8 % (40-80); PLATELET COUNT 204 10x3/uL (130-400); RBC 3.26 10x6/uL (4.00-5.40); RDW 12.3 % (11.5-14.5); WBC 7.4 10x3/uL (4.8-10.8)
[2019-06-05 06:08] LABS: ANION GAP 12.5 mmol/L (8-16); CALCIUM 8.6 mg/dL (8.5-10.1); CARBON DIOXIDE 24.8 mmol/L (21.0-32.0); MAGNESIUM - SERUM 1.3 mg/dL (1.8-2.4); PHOSPHOROUS 4.1 mg/dL (2.5-4.9); POTASSIUM - SERUM 3.3 mmol/L (3.5-5.1)
--- NOTE | 2019-06-05 06:30 | NUR ---
POTASSIUM LOW 3.3 - GAVE 40 MEQ K-DUR PO PER ELECTROLYTE PROTOCOL, RECHECK AT 1030. MAGNESIUM LOW 1.3 - GAVE 400 MG MAG OX PO PER PROTOCOL, 2ND DOSE DUE IN 4 HOURS, RECHECK IN AM.
[2019-06-05 08:33] VITALS: BP 150/69
--- NOTE | 2019-06-05 09:22 | NUR ---
PT ALERT X 4. BREATH SOUNDS CLEAR BILAT. IV TO LEFT FOREARM, PATENT, DRESSING CDI. EXISTING LEFT BKA. SORE TO LEFT STUMP, DRESSING CDI. PT REPORTING PAIN OF 3/10, WILL MONITOR. BED LOW, CALL LIGHT IN REACH. NO OTHER NEEDS AT THIS TIME.
[2019-06-05 20:00] VITALS: BP 156/70
[2019-06-06 04:00] VITALS: BP 146/63
[2019-06-06 04:25] LABS: BASOPHILS 0.2 % (0-2); EOSINOPHILS 1.9 % (0-7); HEMATOCRIT 31.5 % (36.0-48.0); HEMOGLOBIN 10.1 g/dL (12-16); IMMATURE GRANULOCYTES 0.5 % (0-5); LYMPHOCYTES 22.1 % (15-50); MCH 31.4 pg (26.0-34.0); MCHC 32.1 g/dL (31.0-37.0); MCV 97.8 fL (80.0-100.0); MEAN PLATELET VOLUME 9.2 fL (7.4-10.4); MONOCYTES 7.5 % (2-11); NEUTROPHILS 67.8 % (40-80); PLATELET COUNT 200 10x3/uL (130-400); RBC 3.22 10x6/uL (4.00-5.40); RDW 12.2 % (11.5-14.5); WBC 5.9 10x3/uL (4.8-10.8)
[2019-06-06 04:45] LABS: CALC OSMOLALITY 282 mosm/kg (275-300); CALCIUM 8.3 mg/dL (8.5-10.1); CARBON DIOXIDE 27.3 mmol/L (21.0-32.0); CHLORIDE - SERUM 106 mmol/L (98-107); CREATININE - SERUM 0.8 mg/dL (0.6-1.3); GLUCOSE 108 mg/dL (74-106); MAGNESIUM - SERUM 1.5 mg/dL (1.8-2.4); POTASSIUM - SERUM 3.6 mmol/L (3.5-5.1); SODIUM 142 mmol/L (136-145); UREA NITROGEN 10 mg/dL (7-18); eGFR NON AFRICAN AMERICAN 76 mL/min (90-120)
[2019-06-06 08:16] VITALS: BP 138/60
[2019-06-06 13:39] VITALS: BP 131/81
[2019-06-06] MEDS ORDERED: Vancomycin 1.25 GM/N IV (13:54)
[2019-06-06] MEDS ORDERED: FLORAJEN3 CAPS460 MG PO (13:55)
[2019-06-06] MEDS ORDERED: FUROSEMIDE20 MG PO (13:55)
[2019-06-06] MEDS ORDERED: ZYLOPRIM300 MG PO (13:55)
[2019-06-06] MEDS ORDERED: HYDROCODON-ACE1 EA10 PO (13:56)
--- NOTE | 2019-06-06 14:32 | MORECARE ---
CASE MANAGEMENT DISCHARGE SUMMARY PATIENT: JAVIER NAIR UNIT: [id number] ADM DATE: 06/01/19 AGE: 68 : 51 SEX: F ROOM/BED: D.2239 AUTHOR: BRYON,DOC PHYSICIAN: REFERRING PHYSICIAN: ROSALINDA ANTHONY MD DATE OF SERVICE: 06/06/19 Discharge Plan Patient Name: JAVIER NAIR Facility: [facility]:[place] : 1950 Planned Disposition: Home Anticipated Discharge Date: Discharge Date: Expected LOS: Initial Reviewer: [email or web address] Initial Review Date: 06/01/2019 Generated: 06/06/19 3:31 pm Comments DCP- Discharge Planning Updated by [email or web address]: Trudi Kirkaptrick on 06/03/19 7:[address] CM spoke with patient regarding nursing home antibiotic treatment and rehab. Patient requests to go home with IV antibiotics and home health v/s inpatient rehab. NIKOLE signed for [facility] and any infusion [email or web address] that will accept insurance. CM uncertain as to what antibiotics will be ordered at this time. CM will continue to follow and assist as needed with discharge planning / needs. DCP- Discharge Planning Updated by [email or web address]: Trudi Kirkpatrick on 06/02/19 4:[address] Patient Name: JAVIER NAIR Admission Status: Urgent Accout number: [id number] Admission Date: 06-01-2019 : 1950 Admission Diagnosis: Attending: GABRIELLE, Current LOS: 1 Anticipated DC Date: Planned Disposition: Home Primary Insurance: MEDICARE A & B Discharge Planning Comments: CM met with patient to complete initial dc planning assessment. CM educated patient on the CM role and verbal consent given by patient to complete assessment. Patient lives at with her . At discharge patient plans to return home and feels this is a safe discharge. CM discussed availability of home health, rehab services, and medical equipment. Patient denied known discharge needs at this time. CM will continue to follow and will assist as needed with dc plans/needs. Gauge And Weigh Machine Operator: Trudi Kirkpatrick DCPIA - Discharge Planning Initial Assessment Updated by [email or web address]: Trudi Kirkpatrick on 06/02/19 5:26 pm * Is the patient Alert and Oriented? Yes * How many steps to enter\exit or inside your home? 4 RAMP * PCP [facility] * Pharmacy [facility] * Preadmission Environment Home with Family * ADLs Independent * Other Equipment WALKER, W/C, CANE, SHOWER CHAIR * List name and contact numbers for known caregivers / representatives who currently or will assist patient after discharge: ERASMO NAIR - [facility] - [phone] * Verbal permission to speak to the caregivers and representatives has been obtained from the patient. Yes * Community resources currently utilized None * Additional services required to return to the preadmission environment? No * Can the patient safely return to the preadmission environment? Yes * Has this patient been hospitalized within the prior 30 days at any hospital? No External [facility]iders [facility] Next Contact Date: Service Request Date: Service Type: Resolution: Reviewer: Comments: External Provider: [facility] Next Contact Date: Service Request Date: Service Type: Resolution: Reviewer: Comments: Coverage Notice Reviewer: [email or web address] Dionna Kirkpatrick Notice Issued Date-Time: 06/03/2019 20:35 Notice Type: Patient Choice Letter Notice Delivered To: Patient Relationship to Patient: Self Health Associate Name: Delivery Method: HAND - Hand Delivered Debbie Days: Prior Verbal Notification: Recipient Understood Notice: Yes Recipient Signature: Yes Med Rec Note Co-signed by Attending: Coverage Notice Comment: [facility] any infusion company Last DP export: 06/03/19 7:41 p Patient Name: JAVIER NAIR Page 11127 at 1432 All edits/amendments must be made on the electronic document DICTATION DATE: 06/06/19 1431 SECTION SUPERVISOR: ROMAN 06/06/19 1431 RPT#: [id number] DC DATE: STATUS: ADM IN [facility] [address] [place] [address] END OF REPORT
--- NOTE | 2019-06-06 14:49 | NUR ---
OT NOTE: PT COMPLETED BED MOB TASKS WITH SBA.PT COMPLETED SIT TO STAND WITH SBA. PT COMPLETED BED TO BSC TRANSFER WITH SBA. PT COMPLETED BUE AROM AXS. 136-2 THANK YOU,HALEY GUADARRAMA
--- NOTE | 2019-06-06 15:02 | NUR ---
Nutrition follow-up: Diet: ADA consistent CHO PO intake ~60% average of last 6 meals labs reviewed multiple BM's Questran started Wt: 216# RDN following.
--- NOTE | 2019-06-06 15:12 | NUR ---
PT PERIPHERAL IV TO LEFT FOREARM DISCONTINUED FOR DISCHARGE. CATH INTACT. PT DANUTA WELL
--- NOTE | 2019-06-06 19:35 | NUR ---
PT ESCORTED TO MAIN ENTRANCE VIA WHEELCHAIR TO MEET FAMILY MEMBER VEHICLE. ALL BELONGINGS ACCOUNTED FOR AND WITH PT.
--- NOTE | 2019-06-07 11:12 | MORECARE ---
CASE MANAGEMENT DISCHARGE SUMMARY PATIENT: JAVIER NAIR UNIT: [id number] ADM DATE: 06/01/19 AGE: 68 : 51 SEX: F ROOM/BED: D.2239 AUTHOR: BRYON,DOC PHYSICIAN: REFERRING PHYSICIAN: ROSALINDA ANTHONY MD DATE OF SERVICE: 06/07/19 Discharge Plan Patient Name: JAVIER NAIR Facility: 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 Patient requests to go home with IV antibiotics and home health v/s inpatient rehab. NIKOLE signed for [facility] and any infusion [employer] that will accept insurance. CM uncertain as to what antibiotics will be ordered at this time. CM will continue to follow and assist as needed with discharge planning / needs. DCP- Discharge Planning Updated by [email or web address]: Trudi Kirkpatrick on 06/02/19 4:[address] Patient Name: JAVIER NAIR Admission Status: Urgent Accout number: [id number] Admission Date: 06-01-2019 : 1950 Admission Diagnosis: Attending: GABRIELLE, Current LOS: 1 Anticipated DC Date: Planned Disposition: Home Primary Insurance: MEDICARE A & B Discharge Planning Comments: CM met with patient to complete initial dc planning assessment. CM educated patient on the CM role and verbal consent given by patient to complete assessment. Patient lives at with her . At discharge patient plans to return home and feels this is a safe discharge. CM discussed availability of home health, rehab services, and medical equipment. Patient denied known discharge needs at this time. CM will continue to follow and will assist as needed with dc plans/needs. Patternmaker Helper: Trudi Kirkpatrick DCPIA - Discharge Planning Initial Assessment Updated by [email or web address]: Trudi Kirkpatrick on 06/02/19 5:26 pm * Is the patient Alert and Oriented? Yes * How many steps to enter\exit or inside your home? 4 RAMP * PCP [facility] * Pharmacy [facility] * Preadmission Environment Home with Family * ADLs Independent * Other Equipment WALKER, W/C, CANE, SHOWER CHAIR * List name and contact numbers for known caregivers / representatives who currently or will assist patient after discharge: ERASMO NAIR - [facility] - [phone] * Verbal permission to speak to the caregivers and representatives has been obtained from the patient. Yes * Community resources currently utilized None * Additional services required to return to the preadmission environment? No * Can the patient safely return to the preadmission environment? Yes * Has this patient been hospitalized within the prior 30 days at any hospital? No Coverage Notice Reviewer: [email or web address] Dionna Kirkpatrick Notice Issued Date-Time: 06/03/2019 20:35 Notice Type: Patient Choice Letter Notice Delivered To: Patient Relationship to Patient: Self Supervisor Microwave Name: Delivery Method: HAND - Hand Delivered Debbie Days: Prior Verbal Notification: Recipient Understood Notice: Yes Recipient Signature: Yes Med Rec Note Co-signed by Attending: Coverage Notice Comment: [facility] any infusion company Last DP export: 06/06/19 1:32 p Patient Name: JAVIER NAIR Page 70897 at 1112 All edits/amendments must be made on the electronic document DICTATION DATE: 06/07/19 1111 SECURITIES CLERK: ROMAN 06/07/19 1111 RPT#: [id number] DC DATE:06/06/19 STATUS: DIS IN [facility] [address] [place] [address] END OF REPORT
--- NOTE | 2019-06-07 12:49 | MORECARE ---
CASE MANAGEMENT DISCHARGE SUMMARY PATIENT: JAVIER NAIR UNIT: [id number] ADM DATE: 06/01/19 AGE: 68 : 51 SEX: F ROOM/BED: D.2239 AUTHOR: BRYON,DOC PHYSICIAN: REFERRING PHYSICIAN: ROSALINDA ANTHONY MD DATE OF SERVICE: 06/07/19 Discharge Plan Patient Name: JAVIER NAIR Facility: [facility]:[place] : 1950 Planned Disposition: Home Anticipated Discharge Date: Discharge Date: 06/06/2019 Expected LOS: Initial Reviewer: [email or web address] Initial Review Date: 06/01/2019 Generated: 06/07/19 1:49 pm Comments DCP- Discharge Planning Updated by [email or web address]: Danielle Sofia on 06/07/19 11:[address] Patient Name: JAVIER NAIR Encounter No: [id number] : 1950 Primary Insurance: MEDICARE A & B Anticipated DC Date: Planned Disposition: Home with HH, and infusion. External Planned Provider: : DCP follow-up note: CM met with patient and discussed dc plan. Pt will need IV abx from PICC line, PICC line dressing changes, and weekly labs. NIKOLE signed for any infusion company and . Referral and acceptance by [facility], and [facility]. Patient and family in agreement with discharge plan. 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 Patient requests to go home with IV antibiotics and home health v/s inpatient rehab. NIKOLE signed for [facility] and any infusion company that will accept insurance. CM uncertain as to what antibiotics will be ordered at this time. CM will continue to follow and assist as needed with discharge planning / needs. DCP- Discharge Planning Updated by [id number]: Trudi Kirkpatrick on 06/02/19 4:[address] Patient Name: JAVIER NAIR Admission Status: Urgent Accout number: [id number] Admission Date: 06-01-2019 : 1950 Admission Diagnosis: Attending: GABRIELLE, Current LOS: 1 Anticipated DC Date: Planned Disposition: Home Primary Insurance: MEDICARE A & B Discharge Planning Comments: CM met with patient to complete initial dc planning assessment. CM educated patient on the CM role and verbal consent given by patient to complete assessment. Patient lives at with her . At discharge patient plans to return home and feels this is a safe discharge. CM discussed availability of home health, rehab services, and medical equipment. Patient denied known discharge needs at this time. CM will continue to follow and will assist as needed with dc plans/needs. Produce Laborer: Trudi Kirkpatrick DCPIA - Discharge Planning Initial Assessment Updated by [id number]: Trudi Kirkpatrick on 06/02/19 5:26 pm * Is the patient Alert and Oriented? Yes * How many steps to enter\exit or inside your home? 4 RAMP * PCP [facility] * Pharmacy [facility] * Preadmission Environment Home with Family * ADLs Independent * Other Equipment WALKER, W/C, CANE, SHOWER CHAIR * List name and contact numbers for known caregivers / representatives who currently or will assist patient after discharge: ERASMO NAIR [facility] - [phone] * Verbal permission to speak to the caregivers and representatives has been obtained from the patient. Yes * Community resources currently utilized None * Additional services required to return to the preadmission environment? No * Can the patient safely return to the preadmission environment? Yes * Has this patient been hospitalized within the prior 30 days at any hospital? No Coverage Notice Reviewer: [id number] Dionna Kirkpatrick Notice Issued Date-Time: 06/03/2019 20:35 Notice Type: Patient Choice Letter Notice Delivered To: Patient Relationship to Patient: Self Textile Machinery Instructor Name: Delivery Method: HAND - Hand Delivered Debbie Days: Prior Verbal Notification: Recipient Understood Notice: Yes Recipient Signature: Yes Med Rec Note Co-signed by Attending: Coverage Notice Comment: [facility] any infusion company Reviewer: [id number] Dionna Sofia Notice Issued Date-Time: 05/30/2019 14:00 Notice Type: IM Discharge Notice Notice Delivered To: Patient Relationship to Patient: Textile Machinery Instructor Name: Delivery Method: PHONE - Phone Debbie Days: Prior Verbal Notification: Yes Recipient Understood Notice: Yes Recipient Signature: Med Rec Note Co-signed by Attending: Coverage Notice Comment: [facility] IMM VIA PHONE Reviewer: [id number] Dionna Sofia Notice Issued Date-Time: 06/06/2019 14:00 Notice Type: Patient Choice Letter Notice Delivered To: Other Relationship to Patient: Textile Machinery Instructor Name: Delivery Method: PHONE - Phone Debbie Days: Prior Verbal Notification: Yes Recipient Understood Notice: Yes Recipient Signature: Med Rec Note Co-signed by Attending: Coverage Notice Comment: NIKOLE SIGNED FOR [facility], AND [facility] Last DP export: 06/07/19 10:12 a Patient Name: JAVIER NAIR Page [phone] at 1249 All edits/amendments must be made on the electronic document DICTATION DATE: 06/07/19 1249 IT APPLICATION DEVELOPMENT MANAGER: ROMAN 06/07/19 1249 RPT#: [id number] DC DATE:06/06/19 STATUS: DIS IN [facility] [address] [place] [address] END OF REPORT
== END 2019-06-06 19:35 | disposition home health service (06) | DRG 565 ==
LOC: D.MS 12:20
PROVIDERS: Internal Medicine Nephrology; ADMIT Family Medicine; ATTEND Family Medicine
PROC: 05HY33Z Insertion of Infusion Device into Upper Vein, Percutaneous Approach (ICD-10-PCS; principal; 2019-06-06)
DX: T87.44 Infection of amputation stump, left lower extremity (principal); L03.116 Cellulitis of left lower limb; M86.152 Other acute osteomyelitis, left femur; M60.004 Infective myositis, unspecified left leg; E11.69 Type 2 diabetes mellitus with other specified complication; I10 Essential (primary) hypertension; E78.5 Hyperlipidemia, unspecified; M32.9 Systemic lupus erythematosus, unspecified; F31.9 Bipolar disorder, unspecified; M19.90 Unspecified osteoarthritis, unspecified site; D64.9 Anemia, unspecified; E83.42 Hypomagnesemia; E11.42 Type 2 diabetes mellitus with diabetic polyneuropathy

== ENCOUNTER → 2019-07-01 20:49 | Outpatient (CLI) | payer MEDICARE, OTHER ==
[2019-06-02 09:29] VITALS: BMI 39.5
[~2019-07-01 20:49] MED LIST changes: +FLORAJEN3 CAPS460 MG PO; +FUROSEMIDE20 MG PO; +HYDROCODON-ACE1 EA10 PO; +QUESTRAN LIG1 PACKET PO; +Vancomycin 1.25 GM/N IV
[2019-07-01 21:15] LABS: CREATININE - SERUM 1.2 mg/dL (0.6-1.3)
== END | disposition home or self-care (01) ==
LOC: D.LABREF 20:49
PROVIDERS: ATTEND Family Medicine
DX: M86.152 Other acute osteomyelitis, left femur (principal); L03.116 Cellulitis of left lower limb

== ENCOUNTER 2020-05-15 19:20 | Inpatient (IN) | payer MEDICARE, OTHER ==
[~2020-05-15] VITALS: Ht 157.5 cm; Wt 94.3 kg
--- NOTE | 2020-05-15 19:10 | NUR ---
ASSISTED OIL AND GAS RECRUITER THAT BROUGHT PT DOWN FROM PREVIOUS UNIT. PT SITTING UP IN BED CL IN REACH. DENIES FURTHER NEEDS AT THIS TIME. BED IN LOW SIDE RAILS X2. BED ALARM ON. RESP EVEN AND UNLABORED. A/O X4. LEFT BKA. CPOC
[~2020-05-15 19:20] MED LIST changes: +MUCINEX600 MG PO; +PLAVIX75 MG PO; +TESSALON PERLE100 MG PO; +ZYPREXA10 MG PO
[2020-05-15 20:51] VITALS: BP 158/63; BMI 38.1
--- NOTE | 2020-05-15 21:00 | NUR ---
PT ADMITTED TO IP REHAB UNDER DR. SAMPSON FOR WORKING DX ACUTE LACUNAR INFARCTION WITH LATERAL ASPECT RIGHT THALMUS. PT ORIENTED TO UNIT, ROOM, BATHROOM AND REMOTE FUNCTIONS. ANSWERED PT CONCERNS ABOUT EXPECTATION FOR TOMORROW FOR THERAPY. PT STATED SHE ONLY PLANS ON BEING HERE NO LONGER THAN 4 DAYS. PT IS ALERT AND ORIENTED X4. NO DEFICITS NOTED. 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 RLE +1 EDEMA, LBKA EDEMA +2. REDDNESS AND YEAST NOTED UNDER BREASTS, ABDOMINAL FOLDS, AND GROIN AREAS NYSTATIN POWDER ORDERED. COCCYX 2.5CM X 2CM STAGE 1 PRESSURE INJURY, AREA IS RED AND NONBLANCHABLE, ENCOURAGED PT TO Q2H TURN, PT IS ABLE TO REPOSITION SELF. CALMOSEPTINE ORDERED. TELE REMOVED NO NEW ORDERS TO CONTINUE CALLED [employer] EVALUATOR TRANSFER STUDENTS TO GET LAST WEEK READINGS emids INFORMED THIS NURSE PT HAS BEEN RUNNING NORMAL SINUS IN 80'S. NO IV OR OXYGEN NOTED. VS STABLE. DENIES ANY PAIN OR OTHER NEEDS. BSC PROVIDED. PT DOES HAVE PROTHESIS UNABLE TO WEAR D/T EDEMA. CALL LIGHT AND WATER WITHIN REACH. CPOC
[2020-05-16 07:49] VITALS: BP 178/64
[2020-05-16 08:18] LABS: CALC OSMOLALITY 279 mosm/kg (275-300); CALCIUM 8.8 mg/dL (8.5-10.1); CARBON DIOXIDE 21.3 mmol/L (21.0-32.0); CHLORIDE - SERUM 106 mmol/L (98-107); CREATININE - SERUM 0.8 mg/dL (0.6-1.3); GLUCOSE 130 mg/dL (74-106); POTASSIUM - SERUM 3.8 mmol/L (3.5-5.1); SODIUM 138 mmol/L (136-145); UREA NITROGEN 19 mg/dL (7-18); eGFR NON AFRICAN AMERICAN 75 mL/min (90-120)
[2020-05-16 08:19] LABS: BASOPHILS 0.1 % (0-2); EOSINOPHILS 2.8 % (0-7); HEMATOCRIT 35.1 % (36.0-48.0); HEMOGLOBIN 12.2 g/dL (12-16); IMMATURE GRANULOCYTES 0.3 % (0-5); LYMPHOCYTE ABS# 1.14 10x3/uL (1.18-3.74); LYMPHOCYTES 16.7 % (15-50); MCH 32.4 pg (26.0-34.0); MCHC 34.8 g/dL (31.0-37.0); MCV 93.4 fL (80.0-100.0); MEAN PLATELET VOLUME 9.7 fL (7.4-10.4); MONOCYTES 7.5 % (2-11); NEUTROPHIL ABS# 4.96 10x3/uL (1.56-6.13); NEUTROPHILS 72.6 % (40-80); PLATELET COUNT 185 10x3/uL (130-400); RBC 3.76 10x6/uL (4.00-5.40); RDW 13.1 % (11.5-14.5)
[2020-05-16 08:25] LABS: WBC 6.8 10x3/uL (4.8-10.8)
--- NOTE | 2020-05-16 13:07 | NUR ---
CARE TEAM MEETING: PATIENT IS NEW TO UNIT AND WILL BE RA AT NEXT MEETING. HAVE WELCOMED PATIENT TO UNIT.WILL CONTINUE TO FOLLOW WITH PATIENT.
[2020-05-16 13:30] VITALS: Ht 157.5 cm; Wt 94.3 kg
--- NOTE | 2020-05-16 15:31 | NUR ---
PATIENT ADMITTS TO REHAB FROM ACUTE FLOOR. HER PCP IS DR. MANRIQUEZ. DME AT HOME IS A WALKER AND A WHEELCHAIR. HER DC PLANS ARE TO RETURN HOME WITH HER SPOUSE. WILL CONTINUE TO FOLLOW WITH PATIENT.
--- NOTE | 2020-05-16 19:08 | NUR ---
RECIEVED PT SITTING UP IN BED WATCHING TV AND TALKING ON PHONE. CL IN REACH. BED IN LOW SIDE RAILS X2. A/O X4. LUNGS CLEAR. BOWEL ACTIVE X4. RESP EVEN AND UNLABORED. RESP EVEN AND UNLABORED. DENIES NEEDS AT THIS TIME. CPOC
[2020-05-16 20:35] VITALS: BP 155/78
[2020-05-17 08:00] VITALS: BP 130/61
--- NOTE | 2020-05-17 09:58 | NUR ---
SHE IS UP IN THE WHEELCHAIR GOING TO THE BATHROOM. SHE HAS A RED AREA THAT IS LEAKING FLUID ON HER LEFT KNEE, APPLIED A NEW DRESSING. THE CALL LIGHT IS WITHIN REACH.
[2020-05-17 20:00] VITALS: BP 125/74
--- NOTE | 2020-05-17 23:05 | NUR ---
PT RESTING WITH EYES CLOSED. RESPIRATIONS EVEN AND UNLABORED. HER BED IS LOW, SIDE RAILS UP X 2 AND CALL LIGHT IS WITHIN REACH.
[2020-05-18 07:08] LABS: BASOPHILS 0.2 % (0-2); EOSINOPHILS 2.8 % (0-7); HEMATOCRIT 37.5 % (36.0-48.0); HEMOGLOBIN 13.1 g/dL (12-16); IMMATURE GRANULOCYTES 0.3 % (0-5); LYMPHOCYTE ABS# 1.39 10x3/uL (1.18-3.74); LYMPHOCYTES 15.5 % (15-50); MCHC 34.9 g/dL (31.0-37.0); MCV 91.7 fL (80.0-100.0); MEAN PLATELET VOLUME 9.9 fL (7.4-10.4); MONOCYTES 7.3 % (2-11); NEUTROPHIL ABS# 6.63 10x3/uL (1.56-6.13); NEUTROPHILS 73.9 % (40-80); RBC 4.09 10x6/uL (4.00-5.40); RDW 12.9 % (11.5-14.5)
[2020-05-18 07:16] LABS: ANION GAP 15.8 mmol/L (8-16); CALCIUM 9.2 mg/dL (8.5-10.1); CARBON DIOXIDE 22.3 mmol/L (21.0-32.0); POTASSIUM - SERUM 4.1 mmol/L (3.5-5.1)
[2020-05-18 07:20] VITALS: BP 173/69
[2020-05-18 07:24] LABS: PLATELET COUNT 260 10x3/uL (130-400)
--- NOTE | 2020-05-18 07:30 | NUR ---
[facility] HER LEFT STUMP HAS A DRESSING ON IT; CLEAN, DRY, AND INTACT. SHE IS USING THE WHEELCHAIR TO GET TO THE BATHROOM. THE CALL LIGHT IS WITHIN REACH AND THE ALARM IS ON.
--- NOTE | 2020-05-18 13:28 | NUR ---
Nutrition Follow-up: Diet: Diabetic PO intake: 95-100% x last 3 meals. She states that her appetite is good and denies needs from dietary at this time. Last BM: 05/17/20. Wt: 208# (05/16/20) Meds noted: probiotics, abx, metformin Labs noted: Glu 113(H) Skin: stage I PU to coccyx Recommend continue current diet. RD will follow-up within 7 days.
--- NOTE | 2020-05-18 16:10 | NUR ---
CALLED TO THE ROOM, HER LEFT STUMP WOUND IS LEAKING IN THE FLOOR. APPLIED A BOX OF 4X4 WITH TAPE ON IT. THE FLUID IS CLEAR LIGHT YELLOW.
--- NOTE | 2020-05-18 17:01 | NUR ---
PLAVIX CALLED INTO THE [facility] PER FAMILY REQUEST, DISCHARGING HOME THURSDAY AND THE PHARMACY IS CLOSED ON THURSDAY.
[2020-05-18 19:51] VITALS: BP 149/69
[2020-05-18 19:52] VITALS: BP 181/87
--- NOTE | 2020-05-18 20:10 | NUR ---
PATIENT RECEIVED SITTING UP IN BED. ASSESSMENT & VITAL SIGNS DONE. LEFT KNEE DRESSING C/D/I. NO C/O PAIN OR DISTRESS. BED LOW. CALL LIGHT & BEDSIDE TABLE WITHIN REACH. WILL CONTINUE TO MONITOR.
--- NOTE | 2020-05-19 02:13 | NUR ---
I have reviewed this patient and I concur with the Shift Assessment completed by the Licensed Practical Nurse today this shift.
--- NOTE | 2020-05-19 03:46 | NUR ---
PATIENT EYES CLOSED. RESPIRATIONS 18 & EVEN. CALL LIGHT, BEDSIDE TABLE WITHIN REACH. WILL CONTINUE TO MOITOR.
--- NOTE | 2020-05-19 05:03 | NUR ---
PATIENT USED CALL LIGHT FOR ASSIST. PATIENT STANDBY IN & OUT OF BED. ON & OFF COMMODE. BM & VOID. PATIENT BUTT PASTE APPLIED. MODERATE ASSIST WITH PULLING UP BRIEF & PANTS. BED LOW. CALL LIGHT WITHIN REACH. WILL CONTINUE TO MONITOR.
--- NOTE | 2020-05-19 05:24 | NUR ---
PATIENT USED CALL LIGHT FOR ASSIST. PATIENT STANDBY IN & OUT OF BED & WHEELCHAIR. PATIENT HAD BM IN BRIEF & COMMODE. PATIENT MODERATE ASSIST WITH CLEANING BUTTOCKS & LEGS. PATIENT RETURNED TO BED. ALARM ON. CALL LIGHT WITHIN REACH. WILL CONTINUE TO MONITOR.
[2020-05-19 08:00] VITALS: BP 119/65
--- NOTE | 2020-05-19 08:00 | NUR ---
PT RESTING IN BED WITH EYES OPEN CALL LIGHT IN REACH WILL MONITER
--- NOTE | 2020-05-19 17:46 | NUR ---
PT RESTING IN BED WATCHING TV WITH AT BEDSIDE WILL MONITER
--- NOTE | 2020-05-19 19:11 | NUR ---
PATIENT RECIEVED SITTING UP IN BED WATCHING TV. ASSESSMENT & VITAL SIGNS DONE. NO C/O PAIN OR DISTRESS. BED LOW. ALARM ON. CALL LIGHT WITHIN REACH. WILL CONTINUE TO MONITOR.
--- NOTE | 2020-05-19 19:55 | NUR ---
PT CALLED NEEDING ASSISTANCE TO RESTROOM. ASSISTED PT TO RESTROOM WITH MIN ASSIST USING W/C. CONTINENT VOID. PT PERFORMED TOILETING HYGIENE INDEPENDENTLY. PT BACK IN BED AND ABLE TO POSITION SELF. DENIES ANY OTHER NEEDS. CALL LIGHT WITHIN REACH. FALL PRECAUTIONS IN PLACE. CPOC
[2020-05-19 20:14] VITALS: BP 122/69
--- NOTE | 2020-05-20 04:15 | NUR ---
I have reviewed this patient and I concur with the Shift Assessment completed by the Licensed Practical Nurse today this shift.
--- NOTE | 2020-05-20 04:37 | NUR ---
PATIENT EYES CLOSED. RESPIRATIONS 18 & EVEN. NO ADVERSE REACTION TO ANTIBIOTIC AT THIS TIME. BED LOW. CALL LIGHT WITHIN REACH. WILL CONTINUE TO MONITOR.
--- NOTE | 2020-05-20 05:23 | NUR ---
PATIENT USED CALL LIGHT FOR ASSIST. PATIENT STANDBY TRANSFER IN & OUT OF WHEELCHAIR. ON & OFF COMMODE. VOID ONLY REURNED TO LOW BED. ALARM ON. CALL LIGHT & BEEDSIDE TABLE WITHIN REACH. WILL CONTINUE TO MONITOR.
[2020-05-20 08:21] VITALS: BP 149/63
--- NOTE | 2020-05-20 08:30 | NUR ---
PT UP IN WHEELCHAIR IN ROOM EATING BREAKFAST TOLERATING WELL CALL LIGHT IN REACH WILL MONITER
[2020-05-20] MEDS ORDERED: CLEOCIN HCL300 MG PO (10:27)
--- NOTE | 2020-05-20 12:45 | NUR ---
PT DISCHARGED TO HOME WITH VIA WHEELCHAIR DISCHARGE MEDS CALLED TO PHARMACY DISCHARGE MEDS AND SUMMARY REVIEWED WITH PT TOLERATED WELL
--- NOTE | 2020-05-21 09:08 | NUR ---
PATIENT DISCHARGED HOME ON 05/20/20 TO HER HOME WITH FAMILY.[facility] WILL PROVIDE THERPY AT HOME. NO NEW DME NEEDED AT THIS TIME. DR. MANRIQUEZ 05/24/20 @ 4:00, DR. ELLIS 09/12/20 @ 3:00. COMPARE DATA REVIEWED , PATIENT VOICED UNDERSTANDING, NIKOLE SIGNED, IMM SERVED AND EXPLAINED ONE GIVEN TO PATIENT AND ONE FILED IN CHART. DISCHARGE INSTRUCTIONS FAXED TO PCP, HOME HEALTH AND REVIEWED WITH PATIENT.
--- NOTE | 2020-05-21 09:24 | RHP ---
PATIENT: JAVIER NAIR MEDICAL RECORD: [id number] ACCOUNT: [id number] [id number] : [birth year] ADMISSION DATE: 05/15/20 REHABILITATION HISTORY AND PHYSICAL EXAMINATION POST ADMISSION PHYSICIAN EXAMINATION ADMITTING DIAGNOSIS: Acute lacunar infarct involving the lateral aspect of the right thalamus. HISTORY OF PRESENT ILLNESS: The patient is a 69-year-old female patient of Dr. Basurto who has known diabetes and peripheral neuropathy, who was admitted through the ER after having acute onset of left arm and left leg weakness and numbness, also some dysarthria. The patient arrived at the ER close enough to receive TPA. She had successful infusion and felt improved. She confirmed both weakness of her left arm as well as her left leg above her left BKA improved. Dysarthria has resolved and the patient feels that strength and coordination of her left hand and arm has also improved. CT demonstrated moderate atrophy with calcifications of the distal internal carotid arteries. Subsequent MRI demonstrated a small area of mild ischemic infarction in the left lateral aspect of the thalamus. There is a vertebrobasilar right posterior cerebral artery pattern consistent with infarction. Carotid Dopplers did not show any significant carotid stenosis. The patient does have a wound to her left lower extremity stump, which has been having some bleeding from. It definitely needs to be monitored after receiving TPA. Prior to the admission, she was independent with ADLs and ambulation, using prosthesis to assist with ambulation and a ramp at home. She began having trouble with her stump and has been using her wheelchair for a couple of weeks to allow it to heal. Her will be bringing her prosthesis to the rehab to help with using this. She has a left-sided hemiplegia, electrolyte abnormality. She is currently on Plavix. She has been monitored closely for lab values, cognition, medication adjustments, decreased activity tolerance, decreased strength proximal muscle weakness, balance deficit, decreased range of motion, gait disturbance, dyspnea on exertion and high fall risk. These are all barriers to her discharge home. COMORBIDITIES: Include diabetes, dysarthria, left hemiparesis, peripheral neuropathy and obesity. PAST MEDICAL HISTORY: Significant for neuropathy, diabetes, hypertension, dyslipidemia, lupus, esophageal reflux, arthritis, gout, depression, anxiety and bipolar disorder. PAST SURGICAL HISTORY: Includes hysterectomy, cholecystectomy, appendectomy, tonsillectomy and adenoidectomy. She has had bladder repair and a left nbtvd-cxd-pmlw amputation. ALLERGIES: NITROFURANTOIN AND SULFA. CURRENT MEDICATIONS: Include Floranex one cap daily, she is on nystatin powder to apply b.i.d., Calmoseptine b.i.d., she is on Premarin 0.45 mg three times weekly, she is on Zyprexa 10 mg daily, Bystolic 5 mg daily, Cymbalta 60 mg daily, Plavix 75 mg daily, allopurinol 300 mg daily, metformin 1000 mg b.i.d. with meals, Protonix 40 mg b.i.d., Questran 1 packet b.i.d., Pravachol 20 mg at bedtime, she is on Mucinex 1200 mg b.i.d., Tessalon Perles 100 mg t.i.d. and furosemide 20 mg as needed. HISTORY AND PHYSICAL [id number] JOANIEJAVIER PICHARDO HABITS: No alcohol or tobacco use. FAMILY HISTORY: Noncontributory. SOCIAL HISTORY: The patient hopes to return back home and get back to her prior level of functioning. REVIEW OF SYSTEMS: GENERAL: Does complain of weakness and fatigue. HEENT: Denies cold, cough or congestion. CARDIOVASCULAR: Denies any chest. PHYSICAL EXAMINATION: VITAL SIGNS: Stable, afebrile. GENERAL: An elderly female in no acute distress upon exam. HEENT: Normocephalic and atraumatic. Mucosa moist. NECK: Supple. No lymphadenopathy. LUNGS: Clear in upper coreas. No wheezing or rales. HEART: Regular rate and rhythm. No murmurs, rubs or gallops. ABDOMEN: Soft, benign, nondistended. Positive bowel sounds times 4. EXTREMITIES: Does have a noted bktrz-kec-cedz amputation with a small amount of bleeding noted from her distal stump. She has also got what appears to be a cellulitis in her antecubital fossa from a previous IV. NEUROLOGIC: Consistent with CVA. LABORATORY DATA: Her sodium is 138, potassium 3.8, BUN and creatinine of 19 and 0.8, blood sugar is noted to be 130. ASSESSMENT: This is a 69-year-old female patient admitted to rehab with a working diagnosis of acute lacunar infarction. The patient has potential to make improvement. We instituted the following multidisciplinary therapies including, not limited to physical, occupational, respiratory, speech, nutritional services, prosthetics and orthotics. Given her complex medical condition and risks for more complications, rehabilitation services cannot be provided at a low level of care such as skilled nurse facility. PLAN: [facility] to include the following disciplines; A. Physical therapy to improve gait, all transfer skills and bed mobility to a modified independent level. B. Occupational therapy to improve activities of daily living. C. Case management to help with discharge planning and placement options. D. Nutrition to assist with nutritional needs. E. Rehabilitation nursing to assist in monitoring the patient's underlying medical condition and to assist with any type of bowel or bladder management. 2. The patient's current medication and medical care will be continued. 3. Placed on standard fall precautions. 4. The patient's estimated length of stay is approximately 7-10 days. 5. We will go and place her on some antibiotics for that, appears to be cellulitis or infection and we will follow up with care team today at lunch and I will see again in the a.m. TRANSINT:[id number] Voice Confirmation ID: [id number] DOCUMENT ID: [id number] 05/18/2020 Edited ty ROCHA. HISTORY AND PHYSICAL [id number] JAVIER NAIR notes whether there has been none or any medical/functional change since admission: - No change since preadmission screen. JOSEFINA attests patient continues to be appropriate for IRF: - Continues to be appropriate. ADAMA SAMPSON MD at 0924 CC: [id number] DICTATION DATE: 05/16/20821 LOCATOR: 05/16/20 1147 DIS IN 05/20/20 [place] [id number] [place] [id number]
== END 2020-05-20 15:11 | disposition home health service (06) | DRG 57 ==
LOC: D.REHAB 19:20 → D.MS 19:20 → D.REHAB 19:22
PROVIDERS: ADMIT Emergency Medicine; ATTEND Emergency Medicine
DX: I69.30 Unspecified sequelae of cerebral infarction (principal); G81.94 Hemiplegia, unspecified affecting left nondominant side; E11.9 Type 2 diabetes mellitus without complications; E66.9 Obesity, unspecified; G62.9 Polyneuropathy, unspecified; R47.1 Dysarthria and anarthria; I10 Essential (primary) hypertension; M32.9 Systemic lupus erythematosus, unspecified; Z89.512 Acquired absence of left leg below knee; E78.5 Hyperlipidemia, unspecified; K21.9 Gastro-esophageal reflux disease without esophagitis; F31.9 Bipolar disorder, unspecified

== ENCOUNTER 2020-09-04 09:00 | Day surgery (SDC) | payer MEDICARE, OTHER ==
[2020-09-03 10:22] LABS: HEMATOCRIT 41.5 % (36.0-48.0); HEMOGLOBIN 13.9 g/dL (12-16); MCH 31.9 pg (26.0-34.0); MCHC 33.5 g/dL (31.0-37.0); MCV 95.2 fL (80.0-100.0); MEAN PLATELET VOLUME 7.8 fL (7.4-10.4); PLATELET COUNT 231 10x3/uL (130-400); RBC 4.36 10x6/uL (4.00-5.40); RDW 13.9 % (11.5-14.5); WBC 10.5 10x3/uL (4.8-10.8)
[2020-09-03 10:31] LABS: ANION GAP 11.5 mmol/L (8-16); CALCIUM 9.4 mg/dL (8.5-10.1); CARBON DIOXIDE 28.6 mmol/L (21.0-32.0); POTASSIUM - SERUM 4.1 mmol/L (3.5-5.1)
[2020-09-03 14:52] LABS: LYMPHOCYTES 17 % (15-50); MONOCYTES 6 % (2-11); NEUTROPHILS 77 % (40-80); PLATELET ESTIMATE NORMAL
[~2020-09-04] VITALS: Ht 160 cm; Wt 88.5 kg
[~2020-09-04 09:00] MED LIST changes: +BAYER CHEWABLE81 MG PO; +CLEOCIN HCL300 MG PO; +PEPCID40 MG PO; +SUPER B COMPLE1 EAC1 PO; +VITAMIN D325 MC1 PO; +ZYLOPRIM300 MG; +[UNRECOGNIZED DRUG - OTHER]
[2020-09-04 10:16] VITALS: BP 146/74; Ht 160 cm; Wt 88.5 kg
--- NOTE | 2020-09-04 15:24 | NUR ---
PATIENT RECEIVED IN PHASE II RECOVERY FROM PACU. ON ARRIVAL, PATINET WITH RIGHT HAND IV INFUSING, DRESSING TO LEFT BK AMPUTATION DRY/INTACT AND DRESSED WITH DEVEN WRAP. DENIES ANY PAIN/DISCOMFORT. 1410 TOLERATING LIQUIDS WITHOUT NAUSEA 1435 IV REMOVED WITH CATH INTACT. DISCHARGE INSTRUCTIONS REVIEWED AND VERBALIED UNDERSTANDING. 1500 DISCHARGED WITH SPOUSE, DENIES PAIN. DRESSING DRY/INTACT. EATING CRACKERS
--- NOTE | 2020-09-05 08:02 | OP ---
PATIENT NAME: JAVIER NAIR MEDICAL RECORD: [id number] :52 LOCATION:[facility] ADMISSION DATE: SURGEON: MERRICK SALGADO DO DATE OF OPERATION: 09/04/2020 PROCEDURE PERFORMED: Revision left below-knee amputation. PREOPERATIVE DIAGNOSIS: Painful left below-knee amputation. POSTOPERATIVE DIAGNOSIS: Painful left below-knee amputation. INDICATIONS: The patient is a 70-year-old female who I amputated her left lower extremity, did a below-knee amputation, I believe it was almost 2 years ago. She has had increase in pain and a bony prominence from her tibia at the stump site and it was very painful and she cannot wear her prosthesis, it has worn a hole. Also, she was on antibiotics for a while. She wanted something done surgically to solve the problem. I told her I would cut more of a tibia off and put a Kerecis graft at the tip to cover the bone hopefully give her enough padding for a prosthesis. She is okay with that and aware of the risks including infection, bleeding, damage to nerves or vessels, need for further surgery, continued pain and she signed a consent. SURGEON: Merrick Salgado D.O. DESCRIPTION OF PROCEDURE: The patient was taken to the operative suite, laid in supine position, given general anesthetic and LMA was placed. Left lower extremity was prepped and draped in sterile fashion. Timeout was performed. Everyone was in agreement with the correct side, site, patient, and procedure. The patient received 2 grams of Ancef. I then raised the left lower extremity and tourniquet was inflated to 350 mmHg and it was up for 9 minutes. We then made an incision over the anterior lower leg and made careful dissection down to the tibia, cleared it off anteriorly and posteriorly, medial and laterally and then put a Pugh underneath it to protect the vessels and then used a saw and cut it and also cut the fibula to equal lengths, fibula slightly more proximal after that initial cut. I then sewed in a Kerecis graft with 5 x 7 in a U-shaped fashion covering the tip of the stump and then tucking it down at the bottom of it and then coming up on the more distal aspect of the stump creating a pocket. I then irrigated and then Doc Toledo, certified surgical account management assistant closed the skin with 2-0 Vicryl in inverted fashion and placed a ZipLine on the skin. She was then dressed with soft dressing, awakened and taken to recovery in stable condition. The tourniquet was let down at 9 minutes and there was minimal bleeding. BLOOD LOSS: Minimal. COMPLICATIONS: None. TRANSINT:[id number] Voice Confirmation ID: [id number] DOCUMENT ID: [id number] OPERATIVE REPORT [id number] JAVIER NAIR MICHAEL D, DO at 0802 CC: [id number] DICTATION DATE: 09/04/20 1323 PAINT STRIPING MACHINE OPERATOR: 09/04/20 1838 [facility] 09/04/20 [place] [id number] [place] [address]
== END 2020-09-04 15:00 | disposition home or self-care (01) ==
LOC: D.OPS 09:00 → D.MS 13:14 → D.OPS 14:15
PROVIDERS: Anesthesiology; ATTEND Orthopaedic Surgery
DX: Z89.512 Acquired absence of left leg below knee (principal); L97.909 Non-pressure chronic ulcer of unspecified part of unspecified lower leg with unspecified severity